=== PATIENT | female | born 1990 | race Two or more races ===

== ENCOUNTER 2019-01-13 18:07 | Inpatient (IN) | payer MEDICAID ==
[~2019-01-13] VITALS: Ht 162.6 cm; Wt 64.9 kg
[2019-01-13 18:57] LABS: BASOPHILS % (AUTO) 0.5 % (0.0-2.0); EOSINOPHILS % (AUTO) 3.7 % (0.0-6.0); HEMATOCRIT 36 % (33-45); HEMOGLOBIN 12.5 g/dL (11.5-14.8); LYMPHOCYTES # (AUTO) 1.5 /CMM (0.8-4.8); LYMPHOCYTES % (AUTO) 19.7 % (20.0-44.0); MEAN CORPUSCULAR HGB CONC 35 g/dl (31.0-36.0); MEAN CORPUSCULAR VOLUME 94 fL (82-100); MONOCYTES # (AUTO) 0.7 /CMM (0.1-1.30); MONOCYTES % (AUTO) 10.1 % (2.0-12.0); NEUTROPHILS # (AUTO) 4.9 /CMM (1.8-8.9); PLATELET COUNT (AUTO) 501 /CMM (150-450); RED BLOOD CELL COUNT(AUTO) 3.82 MIL/uL (4.0-5.2); WHITE BLOOD COUNT (AUTO) 7.4 K/uL (4.3-11.0)
[2019-01-13 19:03] LABS: CALCIUM, SERUM 9.2 mg/dL (8.5-10.1); CREATININE 0.6 mg/dL (0.6-1.3); POTASSIUM 4.6 mmol/L (3.5-5.1)
--- NOTE | 2019-01-13 19:05 | NUR ---
PT BIB RA WITH A C/O ABNORMAL LABS. PT CAME FROM HOME. PT'S SISTER IS AT THE BEDSIDE. PT IS NON VERBAL, HAS HX OF MULT ANEURYSMS. PT HAS MANAGER CAR SHUNT IN PLACE, TRACH TO ROOM AIR WITH CLOSED SUCTIONING, AND A GTUBE. PT HAS LUE CONTRACTURE, BLE CONTRACTURES. BLE ARE FLOATING ON A PILLOW WITH A PILLOW IN BETWEEN HER KNEES. PT IS ON THE MONITOR AND CONTINUOUS PULSE OX. SUCTIONING DONE BY RT.
--- NOTE | 2019-01-13 19:07 | NUR ---
RT CALLED FOR CLOSED SUCTIONING
--- NOTE | 2019-01-13 19:10 | NUR ---
CXR IN PROGRESS AT THE BEDSIDE.
--- NOTE | 2019-01-13 19:19 | NUR ---
Note undone in EDM - 01/13/19 at 2013 by ADRIANA PT BIB RA WITH A C/O ABNORMAL LABS. PT CAME FROM HOME. PT'S SISTER IS AT THE BEDSIDE. PT IS NON VERBAL, HAS HX OF MULT ANEURYSMS. PT HAS MULTI CRAFT MAINTENANCE TECHNICIAN SHUNT IN PLACE, TRACH TO ROOM AIR WITH CLOSED SUCTIONING, AND A GTUBE. PT HAS LUE CONTRACTURE, BLE CONTRACTURES. BLE ARE FLOATING ON A PILLOW WITH A PILLOW IN BETWEEN HER KNEES. PT IS ON THE MONITOR AND CONTINUOUS PULSE OX. SUCTIONING DONE BY RT.
--- NOTE | 2019-01-13 19:38 | NUR ---
CLEAN CATCH DONE AT BEDSIDE. SAMPLE SENT TO LAB.
[2019-01-13 19:48] LABS: APPEARANCE,URINE Cloudy (CLEAR); BILIRUBIN,URINE Negative (NEGATIVE); BLOOD, URINE Negative Ery/uL (NEGATIVE); COLOR,URINE Yellow (YELLOW); KETONES,URINE Negative (NEGATIVE); LEUKOCYTE ESTERASE ,URINE Small (NEGATIVE); NITRITE, URINE Negative (NEGATIVE); PH,URINE 7.5 (5.0-8.0); PROTEIN,URINE Negative (NEGATIVE); UGLUCOSE Negative (NEGATIVE); UROBILINOGEN,URINE 0.2 EU/dL (0.2)
--- NOTE | 2019-01-13 19:58 | NUR ---
CALLED [facility]. PER EUGENIA THEY ARE FULL TO CAPACITY AND HAVE NO AVAILABLE BEDS.
--- NOTE | 2019-01-13 20:03 | NUR ---
PT LEFT FOR CT VIA RNEY
[2019-01-13 20:05] LABS: BACTERIA,URINE Many /HPF (None Seen); RBC,URINE 0-2 /HPF (0-2); SQUAMOUS EPITHELIAL CELL,UR Few /HPF (None Seen); URINE AMORPHOUS PHOSPHATES Many /HPF (None Seen)
--- NOTE | 2019-01-13 20:06 | NUR ---
REPORT GIVEN TO MINDY LIZ FOR TO.
--- NOTE | 2019-01-13 20:36 | NUR ---
REPORT GIVEN TO NIEVES LIZ.
[2019-01-13] MEDS ORDERED: HYDROCODONE/APAP 5/325MG 1 EACH TABLET PO PRN (22:00)
[2019-01-13] MEDS ORDERED: ZOLPIDEM TARTRATE 5 MG TABLET PO PRN (22:00)
[2019-01-13] MEDS ORDERED: ONDANSETRON HCL/PF 4 MG/2 ML VIAL IVP PRN (22:00)
[2019-01-13] MEDS ORDERED: ACETAMINOPHEN 325 MG TABLET PO PRN (22:00)
[2019-01-13] MEDS ORDERED: Z GUARD REMEDY 2 OZ OINT TP PRN (22:00)
[2019-01-13] MEDS ORDERED: MAGNESIUM HYDROXIDE 30 ML UDC PO PRN (22:00)
[2019-01-13 22:15] VITALS: BP 127/79
--- NOTE | 2019-01-13 22:15 | NUR ---
CROSSING SUPERVISOR ADMITTING OPENING NOTES RECEIVED PATIENT FROM ER VIA RNEY, SAFELY TRANSFERRED TO BED, TRACH IN PLACE ON RA 98%,RESPIRATIONS EVEN AND UNLABORED WITH EQUAL RISE AND FALL OF CHEST, REMAINS FREE OF PAIN AT THIS TIME, NO FACIAL GRIMACING PRESENT, PLACED ON JIG BUILDER [address] REGULAR RHYTHM, SUCTIONING PROVIDED, TOLERATED WELL, BODY ASSESSMENT DONE NOTED WITH UPPER BACK RASH, PICTURES TAKEN , SKIN REMAINS INTACT, HEELS OFFLOADED, GTUBE IN PLACE, NO RESIDUALS PRESENT, INTACT AND PATENT, HEAD OF BED ELEVATED FOR ASPIRATION PRECAUTIONS, IV SITE TO RIGHT WRIST INTACT AND PATENT, NO REDNESS , NO INFILTRATION , BELONGINGS LIST DONE, MED RECON IN PLACE, SAFETY PRECAUTIONS IN PLACE, ORIENTED TO STAFF AND CALL LIGHT, ALL NEEDS ATTENDED AT THIS TIME, WILL CONTINE FREQUENT NEURO CHECKS , WILL FOLLOW MD ORDERS. REYNOLD SISTER [phone] MARIA LUZ SISTER [phone] FRACISCO BROTHER [phone]
[2019-01-13 22:30] VITALS: BP 127/79
[2019-01-13] MEDS ORDERED: PROP10TA10 GT (22:57)
[2019-01-13] MEDS ORDERED: HEPA500039 SQ (22:57)
[2019-01-13] MEDS ORDERED: DESMOPRESSIN ACETATE GT (22:57)
[2019-01-13] MEDS ORDERED: LEVE500T9 GT (22:57)
[2019-01-13] MEDS: LEVETIRACETAM SOL (5 ML) 100 MG/ML UDC PO SCH (23:53)
[2019-01-13] MEDS: PROPRANOLOL HCL 10 MG TABLET GT SCH (23:54)
[2019-01-13] MEDS: HEPARIN SODIUM, PORCINE 5000 UNITS/1 ML VIAL SQ SCH (23:55)
[2019-01-14] VITALS (8 sets, daily range): BP systolic 79–114; BP diastolic 49–72
[2019-01-14] MEDS ORDERED: JEVITY 1.2 CAL 1,000 ML BOTTLE GT SCH (02:30)
--- NOTE | 2019-01-14 06:44 | NUR ---
CONTAINER FILLER CLOSING NOTES PATIENT IN BED,AWAKE ALERT AND ORIENTED X1-2 ABLE TO COMMUNICATE WITH GESTURES AND HEAD NODD, TRACH IN PLACE ON RA 98%,RESPIRATIONS EVEN AND UNLABORED WITH EQUAL RISE AND FALL OF CHEST, SUCTION PROVIDED AND TOLERATED WELL, REMAINS FREE OF PAIN AT THIS TIME, NO FACIAL GRIMACING PRESENT, PLACED ON BEAN SPROUT LABORER [address] REGULAR RHYTHM,TOLERATED WELL, BODY REASSESSMENT DONE NOTED WITH UPPER BACK RASH, SACRAL AND HEELS REMAIN INTACT AND FREE OF REDNESS, GTUBE IN PLACE, NO RESIDUALS PRESENT FEEDING CURRENTLY RUNNING AT 20 ML/HR GOAL 67ML/HR,GTUBE INTACT AND PATENT, TRACH AND GTUBE DRESSING CLEANSED AND CHANGED REMAINS CLEAN AND DRY AND INTACT, HEAD OF BED ELEVATED FOR ASPIRATION PRECAUTIONS, IV SITE TO RIGHT WRIST INTACT AND PATENT, NO REDNESS , NO INFILTRATION , SAFETY PRECAUTIONS IN PLACE,CALL LIGHT KEPT WITHIN REACH, ALL NEEDS ATTENDED AT THIS TIME, PERINEAL CARE PROVIDED, REPOSITIONING PROVIDED, HEELS OFFLOADED WILL CONTINUE TO MONITOR AND ENDORSE TO NEXT SHIFT, NO CHANGES IN NEURO OR LOC THROUGHOUT SHIFT SINCE ADMISSION. CONTACTS REYNOLD SISTER [phone] MARIA LUZ SISTER [phone] FRACISCO BROTHER [phone]
[2019-01-14] MEDS ORDERED: JEVITY 1.2 CAL 1,000 ML BOTTLE GT PRN ×2 (07:03→16:00)
--- NOTE | 2019-01-14 07:10 | NUR ---
MS RN NOTES PATIENT IN BED EYES CLOSED, EASY TO AROUSE. HOB ELEVATED. NO ACUTE DISTRESS NOTED. BREATHING UNLABORED. IV ACCESS PATENT AND INTACT, NO REDNESS OR SWELLING NOTED. SAFETY MEASURES IN PLACE. CALL LIGHT WITHIN REACH. WILL CONTINUE TO MONITOR ACCORDINGLY.
[2019-01-14 07:19] LABS: CALCIUM, SERUM 9.8 mg/dL (8.5-10.1); CREATININE 0.8 mg/dL (0.6-1.3); MAGNESIUM 2.1 mg/dL (1.8-2.4); PHOSPHORUS 4.6 mg/dL (2.5-4.9); POTASSIUM 4.3 mmol/L (3.5-5.1)
[2019-01-14 07:26] LABS: BASOPHILS % (AUTO) 0.2 % (0.0-2.0); EOSINOPHILS % (AUTO) 2.9 % (0.0-6.0); HEMATOCRIT 35 % (33-45); HEMOGLOBIN 12.3 g/dL (11.5-14.8); LYMPHOCYTES # (AUTO) 1.3 /CMM (0.8-4.8); LYMPHOCYTES % (AUTO) 17.2 % (20.0-44.0); MEAN CORPUSCULAR HGB CONC 35 g/dl (31.0-36.0); MEAN CORPUSCULAR VOLUME 94 fL (82-100); MONOCYTES # (AUTO) 1.1 /CMM (0.1-1.30); MONOCYTES % (AUTO) 14.3 % (2.0-12.0); NEUTROPHILS % (AUTO) 65.4 % (43.0-81.0); PLATELET COUNT (AUTO) 522 /CMM (150-450); RED BLOOD CELL COUNT(AUTO) 3.69 MIL/uL (4.0-5.2); WHITE BLOOD COUNT (AUTO) 7.7 K/uL (4.3-11.0)
[2019-01-14] MEDS: LEVETIRACETAM SOL (5 ML) 100 MG/ML UDC PO SCH ×2 (08:37→21:19)
[2019-01-14] MEDS: HEPARIN SODIUM, PORCINE 5000 UNITS/1 ML VIAL SQ SCH ×2 (08:42→21:21)
[2019-01-14] MEDS: PROPRANOLOL HCL 10 MG TABLET GT SCH ×2 (08:42→17:40)
--- NOTE | 2019-01-14 08:42 | NUR ---
MS RN NOTES SEEN AND EVALUATED BY DR WARE WITH NEW ORDERS MADE, NOTED AND CARRIED OUT.
[2019-01-14] MEDS ORDERED: IV NS 0.9% 1,000 ML IV PRN (09:30)
[2019-01-14 09:54] LABS: ALBUMIN 3.5 g/dL (3.4-5.0); BILIRUBIN,DIRECT 0.1 mg/dL (0.0-0.2); BILIRUBIN,TOTAL 0.3 mg/dL (0.2-1.0); TOTAL PROTEIN, SERUM 8.1 g/dL (6.4-8.2)
--- NOTE | 2019-01-14 11:13 | NUR ---
WOUND CARE CONSULT: PT PRESENTS WITH INCONTINENCE AND SOME CONTRACTURES OF LOWER EXTREMITIES, BROWNISH DOT DISCOLORATION TO BACK, PRESENT ON ADMISSION. RECOMMENDATIONS MADE FOR SKIN PROTECTION AND DISCUSSED WITH NURSING STAFF. WILL SEE PRJason HESS IN AGREEMENT WITH PLAN OF CARE. ISOFLEX LOW AIRLOSS BED TO BE PLACED.
--- NOTE | 2019-01-14 12:42 | NUR ---
MS RN NOTES CLARIFIED ORDERS WITH DR WARE REGARDING NA LEVEL CHECK [id number], WITH ORDERS FOR NA LEVEL Q8H, NOTED AND CARRIED OUT.
--- NOTE | 2019-01-14 12:56 | NUR ---
MS RN NOTES SEEN AND EVALUATED BY ABRAHAM DAMON WITH ORDERS MAY DISCONTINUE CURRENT INFUSING IVF NS ONCE COMPLETED.
[2019-01-14] MEDS: DESMOPRESSIN ACETATE 0.1 MG TABLET PO SCH ×2 (13:49→17:39)
--- NOTE | 2019-01-14 15:41 | NUR ---
MS RN NOTES RECEIVED DIETARY RECOMMENDATION TO DECREASE TUBE FEEDING GOAL RATE FROM 67ML/HR TO 50ML/HR ,RELAYED TO DR WARE AGREED AND MADE ORDER, NOTED AND CARRIED OUT.
--- NOTE | 2019-01-14 19:00 | NUR ---
MS RN NOTES PATIENT IN BED EYES CLOSED, EASY TO AROUSE. HOB ELEVATED. NO ACUTE DISTRESS NOTED. BREATHING UNLABORED. IV ACCESS PATENT AND INTACT, NO REDNESS OR SWELLING NOTED. DUE MEDICATIONS GIVEN. NO ASE NOTED. NEEDS ATTENDED AND ANTICIPATED.KEPT CLEAN DRY AND COMFORTABLE. REPOSITIONED PER PROTOCOL. SAFETY MEASURES IN PLACE. CALL LIGHT WITHIN REACH. ENDORSED TO NIGHT NURSE FOR CONTINUITY OF CARE.
--- NOTE | 2019-01-14 19:10 | NUR ---
RN MS OPENING NOTES RECEIVED PATIENT IN BED,AWAKE ALERT AND ORIENTED X1-2 ABLE TO COMMUNICATE WITH GESTURES AND HEAD NODD, TRACH IN PLACE ON RA 99%,RESPIRATIONS EVEN AND UNLABORED WITH EQUAL RISE AND FALL OF CHEST, SUCTION PROVIDED AND TOLERATED WELL, REMAINS FREE OF PAIN AT THIS TIME, NO FACIAL GRIMACING PRESENT, PATIENT REPOSITIONED SACRAL AND HEELS REMAIN INTACT AND FREE OF REDNESS,OFFLOADED, GTUBE IN PLACE, NO RESIDUALS PRESENT FEEDING CURRENTLY RUNNING AT 50 ML/HR GOAL ORDERED GTUBE INTACT AND PATENT, HEAD OF BED ELEVATED FOR ASPIRATION PRECAUTIONS, IV SITE TO RIGHT FOREARM #22 INTACT AND PATENT, NO REDNESS , NO INFILTRATION , SAFETY PRECAUTIONS IN PLACE,CALL LIGHT KEPT WITHIN REACH, ALL NEEDS ATTENDED AT THIS TIME, PERINEAL CARE PROVIDED, REPOSITIONING PROVIDED, HEELS OFFLOADED WILL CONTINUE TO MONITOR, NO CHANGES IN NEURO OR LOC AT THIS TIME WILL CONTINUE TO MONITOR.
--- NOTE | 2019-01-14 22:50 | NUR ---
rn ms notes iv started to right upper arm to infuse fluids #24. iv site to right fa intact and patent, however patient frequently bend arms restricting iv to properly flow as ordered.
--- NOTE | 2019-01-15 06:30 | NUR ---
RN MS CLOSING NOTES PATIENT IN BED,AWAKE ALERT AND ORIENTED X1-2 ABLE TO COMMUNICATE WITH GESTURES AND HEAD NODD, TRACH IN PLACE, ON COOL AEROSL 5L 02 FIO2 28% ,RESPIRATIONS EVEN AND UNLABORED WITH EQUAL RISE AND FALL OF CHEST, SUCTION PROVIDED AND TOLERATED WELL, REMAINS FREE OF PAIN AT THIS TIME, NO FACIAL GRIMACING PRESENT, PATIENT REPOSITIONED SACRAL AND HEELS REMAIN INTACT AND FREE OF REDNESS,OFFLOADED, GTUBE IN PLACE, NO RESIDUALS PRESENT FEEDING CURRENTLY RUNNING AT 50 ML/HR ORDERED GTUBE INTACT AND PATENT, DRESSING CHANGE PROVIDED TO GTUBE AND TRACH AND PROPERLY SECURED, HEAD OF BED ELEVATED FOR ASPIRATION PRECAUTIONS, IV SITE TO RIGHT FOREARM #22 AND RIGHT UPPER ARM #24 INTACT AND PATENT, NO REDNESS , NO INFILTRATION ,IVF D/CD ORDERED SAFETY PRECAUTIONS IN PLACE,CALL LIGHT KEPT WITHIN REACH, ALL NEEDS ATTENDED AT THIS TIME, PERINEAL CARE PROVIDED, REPOSITIONING PROVIDED, HEELS OFFLOADED WILL CONTINUE TO MONITOR, NO CHANGES IN NEURO OR LOC AT THIS TIME WILL CONTINUE TO MONITOR AND ENDORSE TO NEXT SHIFT.
[2019-01-15 06:33] LABS: BASOPHILS % (AUTO) 0.4 % (0.0-2.0); EOSINOPHILS % (AUTO) 4.1 % (0.0-6.0); HEMATOCRIT 36 % (33-45); HEMOGLOBIN 12.6 g/dL (11.5-14.8); LYMPHOCYTES # (AUTO) 1.7 /CMM (0.8-4.8); LYMPHOCYTES % (AUTO) 24.8 % (20.0-44.0); MEAN CORPUSCULAR HGB CONC 35 g/dl (31.0-36.0); MEAN CORPUSCULAR VOLUME 95 fL (82-100); MONOCYTES # (AUTO) 1.2 /CMM (0.1-1.30); MONOCYTES % (AUTO) 18.1 % (2.0-12.0); NEUTROPHILS # (AUTO) 3.5 /CMM (1.8-8.9); NEUTROPHILS % (AUTO) 52.6 % (43.0-81.0); PLATELET COUNT (AUTO) 468 /CMM (150-450); RED BLOOD CELL COUNT(AUTO) 3.82 MIL/uL (4.0-5.2); WHITE BLOOD COUNT (AUTO) 6.7 K/uL (4.3-11.0)
[2019-01-15 06:38] LABS: URINE SODIUM, RANDOM 7 mmol/l (40-220)
[2019-01-15 06:41] LABS: ALBUMIN 3.3 g/dL (3.4-5.0); BILIRUBIN,TOTAL 0.2 mg/dL (0.2-1.0); CALCIUM, SERUM 9.6 mg/dL (8.5-10.1); CREATININE 0.7 mg/dL (0.6-1.3); MAGNESIUM 2.3 mg/dL (1.8-2.4); PHOSPHORUS 4.2 mg/dL (2.5-4.9); POTASSIUM 4.6 mmol/L (3.5-5.1); TOTAL PROTEIN, SERUM 7.7 g/dL (6.4-8.2)
[2019-01-15 06:51] LABS: OSMOLALITY,URINE 217 mOS/kg (340-1090)
--- NOTE | 2019-01-15 07:45 | NUR ---
MS RN NOTES PATIENT RECEIVED RESTING INSIDE ROOM. SLEEPING, EASILY AROUSABLE THROUGH VERBAL AND TACTILE STIMULI. BREATHING EVEN AND UNLABORED. CONTINUE WITH TRACH/COOL AEROSOL. NO ACUTE DISTRESS NOTED. PATIENT ABLE TO RESPOND WITH GESTURES. DENIES ANY PAIN OR DISCOMFORT AT THIS TIME. NO FACIAL GRIMACE NOTED. ONGOING GTF AND TOLERATING WELL. MAINTAINED ASPIRATION PRECAUTIONS. WILL CONTINUE TO MONITOR. BED LOCKED AND IN LOW POSITION. BILATERAL UPPER SIDE RAILS UP AND LOCKED. CALL LIGHT WITHIN EASY REACH
[2019-01-15 08:00] VITALS: BP 123/79
[2019-01-15] MEDS: LEVETIRACETAM SOL (5 ML) 100 MG/ML UDC PO SCH (08:36)
[2019-01-15 08:39] VITALS: BP 108/81
[2019-01-15] MEDS: HEPARIN SODIUM, PORCINE 5000 UNITS/1 ML VIAL SQ SCH (08:39)
[2019-01-15] MEDS: DESMOPRESSIN ACETATE 0.1 MG TABLET PO SCH ×3 (08:39→16:29)
[2019-01-15] MEDS: PROPRANOLOL HCL 10 MG TABLET GT SCH ×2 (08:39→16:29)
[2019-01-15] MEDS ORDERED: DESM0.1T PO (12:14)
--- NOTE | 2019-01-15 17:52 | NUR ---
MS RN NOTES PATIENT FOR DISCHARGE HOME. DISCHARGE INSTRUCTIONS AND EDUCATION GIVEN AND PROVIDED TO BROTHER ANASTASIA AND VERBALIZED UNDERSTANDING. TRANSPORTATION PRESENT AT UNIT AT 1700. ALL BELONGINGS COMPLETE, NO REPORT OF MISSING INVENTORY. IV REMOVED WITH MINIMAL BLEEDING NOTED. PATIENT LEFT UNIT AT 1730 IN STABLE CONDITION. BREATHING EVEN AND UNLABORED. NO ACUTE DISTRESS. NO FACIAL GRIMACE OR INDICATION OF PAIN NOTED. NO NEW SKIN BREAKDOWN NOTED. LEFT VIA GURNEY WITH BROTHER AND spot worker. MD MADE AWARE OF DISCHARGE
== END 2019-01-15 17:15 | disposition home health service (06) | DRG 426 ==
LOC: ER 18:07 → TELE 21:25 → MED 01-14 08:14
PROVIDERS: ADMIT Nurse Practitioner Acute Care; ATTEND Student in an Organized Health Care Education/Training Program
DX: E87.1 Hypo-osmolality and hyponatremia (principal); D68.59 Other primary thrombophilia; R53.2 Functional quadriplegia; Z93.0 Tracheostomy status; R13.10 Dysphagia, unspecified; Z93.1 Gastrostomy status; N39.0 Urinary tract infection, site not specified; Z86.73 Personal history of transient ischemic attack (TIA), and cerebral infarction without residual deficits; Z86.59 Personal history of other mental and behavioral disorders; Z98.2 Presence of cerebrospinal fluid drainage device; Z98.890 Other specified postprocedural states; I10 Essential (primary) hypertension; Z79.01 Long term (current) use of anticoagulants; T38.895A Adverse effect of other hormones and synthetic substitutes, initial encounter; Y92.009 Unspecified place in unspecified non-institutional (private) residence as the place of occurrence of the external cause; Z87.09 Personal history of other diseases of the respiratory system
CPT/HCPCS: 31720; 36415; 70450-TC; 71045-TC; 80048-TC; 80053-TC; 80061-TC; 80076-TC; 81000-TC; 83735-TC; 83935-TC; 84100-TC; 84295-TC; 84300-TC; 84703-TC; 85025-TC; 87081-TC; 87086-TC; 87186-TC; 94760-TC; G0378; J1644; J1953; J7030

== ENCOUNTER 2019-07-19 17:13 | Emergency (ER) | payer MEDICAID ==
[~2019-07-19] VITALS: Ht 170.2 cm; Wt 71.7 kg
[~2019-07-19 17:13] MED LIST: DESM0.1T PO; HEPA500039 SQ; LEVE500T9 GT; PROP10TA10 GT
--- NOTE | 2019-07-19 17:20 | NUR ---
[id number], FROM HOME, SENT BY PMD FOR SHUNT CHECK ON THE HEAD, PT IS AAOX1, NOT IN RESPIRATORY DISTRESS, V/S STABLE, KEPT RESTED AND COMFORTABLE, WILL CONTINUE TO MONITOR.
--- NOTE | 2019-07-19 17:40 | NUR ---
PAGED DR. FREED (NEURO SURGEON) [phone] [facility] AND LEFT A MESSAGE
[2019-07-19] MEDS ORDERED: HEPA1DIS12 IM (18:00)
[2019-07-19] MEDS ORDERED: PROP10TA10 PO (18:00)
[2019-07-19] MEDS ORDERED: HYDR-500 PO (18:00)
[2019-07-19] MEDS ORDERED: LEVE1000 PO (18:00)
[2019-07-19] MEDS ORDERED: ASPI-605 PO (18:00)
[2019-07-19] MEDS ORDERED: MULT-447 PO (18:00)
[2019-07-19] MEDS ORDERED: CYCL5TAB PO (18:00)
[2019-07-19] MEDS ORDERED: ONDA4TAB11 PO (18:00)
[2019-07-19] MEDS ORDERED: SACC250C PO (18:00)
[2019-07-19] MEDS ORDERED: PSYL0.5245 PO (18:00)
[2019-07-19] MEDS ORDERED: ACET-73 PO (18:00)
[2019-07-19] MEDS ORDERED: VITA1TAB56 PO (18:00)
[2019-07-19] MEDS ORDERED: RANI150T8 PO (18:00)
[2019-07-19] MEDS ORDERED: DESM0.2T23 PO (18:01)
--- NOTE | 2019-07-19 18:32 | NUR ---
PT MAY CONTINUE OWN MEDS, KESHIA HUFFMAN AWARE.
--- NOTE | 2019-07-19 19:04 | NUR ---
CALLED [facility] SPOKE WITH WILFRED TO REQUEST TX. FAXED FACESHEET TO
--- NOTE | 2019-07-19 19:16 | NUR ---
SPOKED TO FAIZAN XIONG OF [facility], WILL CALL BACK FROM UPDATE.
--- NOTE | 2019-07-19 19:31 | NUR ---
REPORT GIVEN TO AGUSTO HATCH FOR TO. AWAITING CALL BACK FROM THE [facility].
--- NOTE | 2019-07-19 20:09 | NUR ---
CALLED [facility] FOR TRANSPORTATION. ETA [phone], TRIP NUMBER [id number]
--- NOTE | 2019-07-19 20:10 | NUR ---
PT WILL BE TRANSFERRED TO [facility] ER NUMBER FOR REPORT: [phone] CHAPARRITA HESS: DR. EDGE
--- NOTE | 2019-07-19 20:13 | NUR ---
FOR ANY CHANGE IN PT STATUS PRIOR TO TRANSFER CALL WILFRED AT
--- NOTE | 2019-07-19 21:06 | NUR ---
REPORT GIVEN TO DONALD AT [facility] FOR TO.
[2019-07-19 21:13] VITALS: BP 123/84
== END 2019-07-19 23:03 | disposition short-term general hospital (02) ==
LOC: ER 17:20
DX: T85.01XA Breakdown (mechanical) of ventricular intracranial (communicating) shunt, initial encounter (principal); I10 Essential (primary) hypertension; Z86.73 Personal history of transient ischemic attack (TIA), and cerebral infarction without residual deficits; Z98.890 Other specified postprocedural states; Z79.899 Other long term (current) drug therapy; Z79.82 Long term (current) use of aspirin
CPT/HCPCS: 99285; A6403

== ENCOUNTER 2019-09-03 10:30 | Emergency (ER) | payer MEDICAID ==
[~2019-09-03] VITALS: Ht 162.6 cm; Wt 59.0 kg
[~2019-09-03 10:30] MED LIST changes: +ACET-73 PO; +ASPI-605 PO; +CYCL5TAB PO; -DESM0.1T PO; +DESM0.2T23 PO; +HEPA1DIS12 IM; -HEPA500039 SQ; +HYDR-500 PO; +LEVE1000 PO; -LEVE500T9 GT; +MULT-447 PO; +ONDA4TAB11 PO; -PROP10TA10 GT; +PROP10TA10 PO; +PSYL0.5245 PO; +RANI150T8 PO; +SACC250C PO; +VITA1TAB56 PO
--- NOTE | 2019-09-03 10:45 | NUR ---
PATIENT BIB SISTER C/O DISLODGED TRACHEOSTOMY TUBE. PT AAOX4, VSS, BREATHING EVEN AND UNLABORED W/ NO ACUTE DISTRESS NOTED. MINIMAL BLEEDING ON THE STOMA. PT CONNECTED TO THE MONITOR. RT AT BEDSIDE.
--- NOTE | 2019-09-03 11:11 | NUR ---
CALLED [facility], SPOKE WITH GILBERTO FOR TRANSFORTATION ([phone]). TRIP# [id number]. ETA 1215. FAMILY AT BEDSIDE MADE AWARE. PRIMARY RN AWARE.
--- NOTE | 2019-09-03 12:00 | NUR ---
PER [facility] PT NOT ASSIGNED A TRANSPORT COMPANY YET, NO ETA AVAILABLE.
--- NOTE | 2019-09-03 13:07 | NUR ---
SANDOVAL MCGRAW TO [facility] ETA [id number] TRIP#[id number]
--- NOTE | 2019-09-03 15:55 | NUR ---
Patient picked up by [facility] in stable condition. Patient will be brought home. Sister at bedside. Written and verbal after care instructions given. Sister verbalizes understanding of instruction.
[2019-09-03 15:57] VITALS: BP 111/85
== END 2019-09-03 15:57 | disposition home or self-care (01) ==
LOC: ER 10:35
DX: J95.09 Other tracheostomy complication (principal); I10 Essential (primary) hypertension; Z86.73 Personal history of transient ischemic attack (TIA), and cerebral infarction without residual deficits; Z79.82 Long term (current) use of aspirin; Z79.899 Other long term (current) drug therapy; Z98.2 Presence of cerebrospinal fluid drainage device
CPT/HCPCS: 99284; A7526

== ENCOUNTER 2020-01-13 08:39 | Emergency (ER) | payer MEDICAID ==
[~2020-01-13] VITALS: Ht 162.6 cm; Wt 70.8 kg
--- NOTE | 2020-01-13 08:42 | NUR ---
PT BIBRA FROM HOME C/O POSSIBLE SEIZURE EPISODE WITNESSED FOR 2-3MINS PER BROTHER, PT IS AAOX3, BED BOUND, NOT IN RESPIRATORY DISTRESS, HOOKED TO LIGHT INDUSTRIAL SUPERVISOR, KEPT RESTED AND COMFORTABLE, WILL CONTINUE TO MONITOR.
--- NOTE | 2020-01-13 08:50 | NUR ---
SEEN AND EXAMINED BY
[2020-01-13 09:06] LABS: BASOPHILS # (AUTO) 0.1 /CMM (0.0-0.2); BASOPHILS % (AUTO) 0.9 % (0.0-2.0); EOSINOPHILS % (AUTO) 4.1 % (0.0-6.0); HEMATOCRIT 42 % (33-45); HEMOGLOBIN 14.7 g/dL (11.5-14.8); LYMPHOCYTES # (AUTO) 1.6 /CMM (0.8-4.8); LYMPHOCYTES % (AUTO) 20.3 % (20.0-44.0); MEAN CORPUSCULAR HGB CONC 35 g/dl (31.0-36.0); MEAN CORPUSCULAR VOLUME 91 fL (82-100); MONOCYTES # (AUTO) 0.7 /CMM (0.1-1.30); MONOCYTES % (AUTO) 8.6 % (2.0-12.0); NEUTROPHILS # (AUTO) 5.4 /CMM (1.8-8.9); NEUTROPHILS % (AUTO) 66.1 % (43.0-81.0); PLATELET COUNT (AUTO) 386 /CMM (150-450); RED BLOOD CELL COUNT(AUTO) 4.67 MIL/uL (4.0-5.2); WHITE BLOOD COUNT (AUTO) 8.1 K/uL (4.3-11.0)
[2020-01-13 09:15] LABS: CALCIUM, SERUM 9.5 mg/dL (8.5-10.1); CREATININE 0.6 mg/dL (0.6-1.3); POTASSIUM 3.8 mmol/L (3.5-5.1)
[2020-01-13 09:21] LABS: ALBUMIN 3.9 g/dL (3.4-5.0); BILIRUBIN,DIRECT 0.1 mg/dL (0.0-0.2); BILIRUBIN,TOTAL 0.4 mg/dL (0.2-1.0); TOTAL PROTEIN, SERUM 8.2 g/dL (6.4-8.2)
--- NOTE | 2020-01-13 11:48 | NUR ---
CALLED TRANSP[facility]ATION [facility] FOR [facility] TR[facility]. ETA [phone]. [facility]FFERANCE NUMBER [id number].
--- NOTE | 2020-01-13 12:00 | NUR ---
PT RESTING COMFORTABLY IN BED. NO COMPLAINTS AT THIS TIME. READY FOR DISCHARGE. WILL ARRANGE FOR TRANSPORTATION.
--- NOTE | 2020-01-13 13:32 | NUR ---
UPDATED ETA [phone]
--- NOTE | 2020-01-13 14:50 | NUR ---
CALLED [facility] ABOUT STATUS OF AMBULANCE TRANSPORT. AMBULANCE WILL BE DELAYED ANOTHER 45-1 HOUR. DID NOT CALL TO UPDATE ABOUT DELAY OF AMBULANCE.
--- NOTE | 2020-01-13 16:04 | NUR ---
REPORT GIVEN TO AMBULANCE UNIT #[phone] FOR TRANSPORT
--- NOTE | 2020-01-13 16:07 | NUR ---
Patient discharged to home in stable condition. Written and verbal after care instructions given. Patient verbalizes understanding of instruction.IV removed. Catheter intact and site benign. Pressure and 4x4 applied to site. No bleeding noted.
[2020-01-13 16:24] VITALS: BP 111/72
== END 2020-01-13 16:25 | disposition home or self-care (01) ==
LOC: ER 08:43
DX: R40.4 Transient alteration of awareness (principal); I10 Essential (primary) hypertension; Z86.73 Personal history of transient ischemic attack (TIA), and cerebral infarction without residual deficits; Z98.890 Other specified postprocedural states; Z79.899 Other long term (current) drug therapy; Z79.82 Long term (current) use of aspirin; Z79.01 Long term (current) use of anticoagulants
CPT/HCPCS: 36415; 70450-TC; 80048-TC; 80076-TC; 85025-TC; 85730-TC

== ENCOUNTER 2020-05-03 02:50 | Emergency (ER) | payer MEDICAID ==
--- NOTE | 2020-05-03 02:50 | NUR ---
SEE DOWNTIME TRIAGE NOTE.
--- NOTE | 2020-05-03 03:02 | NUR ---
PT BIBRA FROM HOME C/O GENERALIZED WEAKNESS, HEADACHE, ELEVATED BP S/P REBAR FABRICATOR SHUNT ADJUSTMENT. @ [facility]. PT NON VERBAL BUT FOLLOWS COMMANDS AND RESPONSIVE TO MECHANICAL STIMULUS. PT CONNECTED TO THE OVAL OR CIRCULAR GLASS CUTTER AND POX
--- NOTE | 2020-05-03 03:10 | NUR ---
BLOOD COLLECTED AND SENT TO LAB
--- NOTE | 2020-05-03 03:15 | NUR ---
PT TAKEN TO CT
--- NOTE | 2020-05-03 03:26 | NUR ---
PT BACK FROM CT
--- NOTE | 2020-05-03 03:30 | NUR ---
PT CLEANED. LINEN CHANGED.
--- NOTE | 2020-05-03 06:00 | NUR ---
CALLED [facility] FOR TRANSPORT. #[phone]
--- NOTE | 2020-05-03 07:00 | NUR ---
[facility] ETA 1030
--- NOTE | 2020-05-03 10:38 | NUR ---
Patient picked up by [facility] UN[facility] in stable condition. Written and verbal after care instructions given. Brother verbalizes understanding of instruction. Patient will be brought home.
[2020-05-03 11:30] VITALS: BP 132/97
[2020-05-03 12:40] LABS: POTASSIUM 4.2 mmol/L (3.5-5.1)
[2020-05-03 12:41] LABS: BILIRUBIN,TOTAL 0.3 mg/dL (0.2-1.0); CALCIUM, SERUM 9.5 mg/dL (8.5-10.1); CREATININE 0.5 mg/dL (0.6-1.3)
[2020-05-03 12:42] LABS: ALBUMIN 4.1 g/dL (3.4-5.0); TOTAL PROTEIN, SERUM 8.2 g/dL (6.4-8.2)
[2020-05-03 12:48] LABS: BASOPHILS # (AUTO) 0.1 /CMM (0.0-0.2); BASOPHILS % (AUTO) 0.9 % (0.0-2.0); EOSINOPHILS % (AUTO) 0.7 % (0.0-6.0); HEMATOCRIT 42 % (33-45); HEMOGLOBIN 14.7 g/dL (11.5-14.8); LYMPHOCYTES # (AUTO) 1.6 /CMM (0.8-4.8); LYMPHOCYTES % (AUTO) 16.8 % (20.0-44.0); MEAN CORPUSCULAR HGB CONC 35 g/dl (31.0-36.0); MEAN CORPUSCULAR VOLUME 93 fL (82-100); MONOCYTES # (AUTO) 0.7 /CMM (0.1-1.30); MONOCYTES % (AUTO) 7.3 % (2.0-12.0); NEUTROPHILS # (AUTO) 7.2 /CMM (1.8-8.9); NEUTROPHILS % (AUTO) 74.3 % (43.0-81.0); PLATELET COUNT (AUTO) 441 /CMM (150-450); RED BLOOD CELL COUNT(AUTO) 4.56 MIL/uL (4.0-5.2); WHITE BLOOD COUNT (AUTO) 9.7 K/uL (4.3-11.0)
== END 2020-05-03 10:41 | disposition home or self-care (01) ==
LOC: ER 02:50
DX: R53.1 Weakness (principal); R41.82 Altered mental status, unspecified; I10 Essential (primary) hypertension; Z86.73 Personal history of transient ischemic attack (TIA), and cerebral infarction without residual deficits; Z98.890 Other specified postprocedural states; Z79.82 Long term (current) use of aspirin; Z79.899 Other long term (current) drug therapy
CPT/HCPCS: 36415; 70450-TC; 80053-TC; 85025-TC; 85610-TC; 85730-TC

== ENCOUNTER 2022-01-23 14:53 | Inpatient (IN) | payer MEDICARE, OTHER ==
[~2022-01-23] VITALS: Ht 162.6 cm; Wt 71.7 kg
--- NOTE | 2022-01-23 15:00 | NUR ---
BIBRA83 HOME, WITNESSED SEIZURE LASTING 90SECS. +ORAL TRAUMA.BG 100 BAIT MAN. PATIENT PLACED ON BED AWAKE, NOT IN DISTRESS.
--- NOTE | 2022-01-23 16:15 | NUR ---
IV L WRIST G20. BLOODS DRAWN FOR INVESTIGATION SENT TO LAB.
[2022-01-23 16:21] LABS: BASOPHILS % (AUTO) 0.1 % (0.0-2.0); EOSINOPHILS % (AUTO) 0.4 % (0.0-6.0); HEMATOCRIT 33 % (33-45); HEMOGLOBIN 11.2 g/dL (11.5-14.8); LYMPHOCYTES # (AUTO) 0.8 K/uL (0.8-4.8); LYMPHOCYTES % (AUTO) 9.5 % (20.0-44.0); MEAN CORPUSCULAR HGB CONC 34 g/dl (31.0-36.0); MEAN CORPUSCULAR VOLUME 93 fL (82-100); MONOCYTES # (AUTO) 0.5 K/uL (0.1-1.30); MONOCYTES % (AUTO) 5.9 % (2.0-12.0); NEUTROPHILS % (AUTO) 84.1 % (43.0-81.0); PLATELET COUNT (AUTO) 356 K/uL (150-450); RED BLOOD CELL COUNT(AUTO) 3.58 MIL/uL (4.0-5.2); WHITE BLOOD COUNT (AUTO) 8.4 K/uL (4.3-11.0)
[2022-01-23] MEDS: LEVETIRACETAM (500MG) 1,000 MG in IV NS 0.9% 100 ML IV SCH (16:45)
[2022-01-23 17:11] LABS: CALCIUM, SERUM 9.2 mg/dL (8.5-10.1); CREATININE 0.4 mg/dL (0.6-1.3); POTASSIUM 4.6 mmol/L (3.5-5.1)
--- NOTE | 2022-01-23 17:25 | NUR ---
MOVE SHEET SUBMITTED AND CALLED FOR TELE BED.
--- NOTE | 2022-01-23 17:43 | NUR ---
covid swab sent.
[2022-01-23] MEDS ORDERED: IV NS 0.9% 1,000 ML BAG IV ONE (18:00)
--- NOTE | 2022-01-23 19:08 | NUR ---
paged it applications developer MD for [facility].
--- NOTE | 2022-01-23 19:14 | NUR ---
GUEVARA HESS TALKING TO ISMAEL HESS
--- NOTE | 2022-01-23 20:41 | NUR ---
REPORT GIVEN TO AGUSTO WILLIS
[2022-01-23 21:00] VITALS: BP 134/98
--- NOTE | 2022-01-23 21:00 | NUR ---
PATIENT ARRIVED FROM ER, AWAKE, NON VERBAL, BROTHER( POA) AT THE BEDSIDE. NO S/S OF DISTRESS NOTED. NOT IN PAIN. ON O2 AT 3L/ MIN NASAL CANNULA. HOB ELEVATED. WITH TRACHEOSTOMY INTACT, DRESSING IS CLEAN, DRY AND INTACT, NO SECRETIONS NOTED. WITH GT INTACT, NO SKIN IRRITATIONS NOTED. CALL LIGHT WITHIN REACH. BED ALARM ON. BED IN LOWEST AND LOCKED POSITION. HAD BM, BROWNISH COLOR, MODERATE AMOUNT, CLEANED PATIENT AND KEPT DRY. THE LEFT PART OF THE HEAD IS SUNKEN, PROTECTED WITH PILLOW. PRECAUTION WHEN TURNING THE PATIENT OBSERVED.
--- NOTE | 2022-01-23 21:03 | NUR ---
PATIENT TRANSFERRED UNDER ACLS
--- NOTE | 2022-01-23 22:08 | NUR ---
INFORMED DR LOPES RE: ADMISSION ORDERS AND 2 HOME MEDS THAT ARE NOT INCLUDED IN THE MED RECON- FLUCONAZOLE 200MG BID AND THE CLOTRIMAZOLE EAR DROPS. AND PATIENT HAS GT ON TUBE FEEDING AT HOME AND PATIENT HAS TRACHEOSTOMY.
--- NOTE | 2022-01-23 22:52 | NUR ---
NO ADMISSION ORDERS YET AT THIS TIME, FOLLOWED UP- SENT MESSAGES AGAIN, CHARGE NURSE CLARITA MORRIS.
[2022-01-23] MEDS ORDERED: FLUC100T8 GT (23:17)
[2022-01-23] MEDS ORDERED: ONDANSETRON HCL/PF 4 MG/2 ML VIAL IVP PRN (23:30)
[2022-01-23] MEDS ORDERED: MAG HYDROX/AL HYDROX/SIMETH 30 ML UDC PO PRN (23:30)
[2022-01-23] MEDS ORDERED: ZOLPIDEM TARTRATE 5 MG TABLET PO PRN (23:30)
[2022-01-23] MEDS ORDERED: ACETAMINOPHEN 325 MG TABLET PO PRN (23:30)
[2022-01-23] MEDS ORDERED: MAGNESIUM HYDROXIDE 30 ML UDC PO PRN (23:30)
[2022-01-23] MEDS: IV NS 0.9% 1,000 ML IV PRN (23:38)
[2022-01-23] MEDS: ENOXAPARIN SODIUM 40 MG/0.4 ML DISP.SYRIN SQ SCH (23:39)
--- NOTE | 2022-01-23 23:54 | NUR ---
DR LOPES CAME AND SEEN THE PATIENT.
--- NOTE | 2022-01-24 00:14 | NUR ---
INFORMED DR LOPES RE: SODIUM 118.
[2022-01-24] MEDS ORDERED: hydrOXYzine PAMOATE 25 MG CAPSULE PO PRN (01:30)
[2022-01-24] MEDS ORDERED: CYCLOBENZAPRINE 10 MG TABLET PO PRN (01:30)
[2022-01-24] MEDS ORDERED: LORAZEPAM INJ 2 MG/ML VIAL IV PRN (02:00)
[2022-01-24 04:01] LABS: BASOPHILS % (AUTO) 0.1 % (0.0-2.0); EOSINOPHILS % (AUTO) 0.5 % (0.0-6.0); HEMATOCRIT 27 % (33-45); HEMOGLOBIN 8.8 g/dL (11.5-14.8); LYMPHOCYTES % (AUTO) 14.9 % (20.0-44.0); MEAN CORPUSCULAR HGB CONC 33 g/dl (31.0-36.0); MEAN CORPUSCULAR VOLUME 98 fL (82-100); MONOCYTES # (AUTO) 0.4 K/uL (0.1-1.30); MONOCYTES % (AUTO) 6.1 % (2.0-12.0); NEUTROPHILS # (AUTO) 5.4 K/uL (1.8-8.9); NEUTROPHILS % (AUTO) 78.4 % (43.0-81.0); PLATELET COUNT (AUTO) 308 K/uL (150-450); RED BLOOD CELL COUNT(AUTO) 2.75 MIL/uL (4.0-5.2); WHITE BLOOD COUNT (AUTO) 6.8 K/uL (4.3-11.0)
[2022-01-24 04:15] VITALS: BP 133/93
[2022-01-24] MEDS ORDERED: LEVETIRACETAM (500MG) 500 MG/5 ML VIAL IV ONE (05:26)
[2022-01-24] MEDS: LEVETIRACETAM (500MG) 1,000 MG in IV NS 0.9% 100 ML IV SCH ×2 (05:56→16:19)
--- NOTE | 2022-01-24 06:00 | NUR ---
CLAIMS DIRECTOR OPENING NOTES: PATIENT IN BED, AWAKE, NON VERBAL, NO S/S OF DISTRESS NOTED. NOT IN PAIN. CALL LIGHT WITHIN REACH. BED ALARM ON. BED IN LOWEST AND LOCKED POSITION. HOB ELEVATED AT ALL TIMES. TURNED AND REPOSITIONED Q2 HOURS. HEELS OFFLOADED AT ALL TIMES. SEIZURE PRECAUTIONS, SIDERAILS PADDED. NO SEIZURE EPISODE NOTED. WITH TRACH INTACT CONNECTED TO COOL AEROSOL 28% ON 5L. GT INTACT.
--- NOTE | 2022-01-24 06:34 | NUR ---
INFORMED DR LOPES RE: TELE MONITOR READING OF SR WITH FIRST DEGREE AV BLOCK
[2022-01-24] MEDS: PANTOPRAZOLE 40 MG TABLET.DR PO SCH (07:30)
--- NOTE | 2022-01-24 07:56 | NUR ---
MS RN OPENING NOTES RECEIVED PATIENT IN BED AWAKE, NON-VERBAL. NOT IN APPARENT DISTRESS. WITH TRACHEOSTOMY ON COOL AEROSOL. HAS RIGHT HAND IV ACCESS #20G WITH NS RUNNING @ 75 ML/HR. SAFETY PRECAUTIONS IN PLACED. SIDE RAILS X4 PADDED. WILL CONTINUE PLAN OF CARE.
[2022-01-24 08:00] VITALS: BP 130/81
[2022-01-24 08:58] LABS: POTASSIUM 4.1 mmol/L (3.5-5.1)
[2022-01-24 09:00] LABS: CALCIUM, SERUM 8.3 mg/dL (8.5-10.1); CREATININE 0.3 mg/dL (0.6-1.3); MAGNESIUM 1.6 mg/dL (1.8-2.4); PHOSPHORUS 3.3 mg/dL (2.5-4.9); THYROID STIMULATING HORMONE 3.978 uIU/mL (0.358-3.74)
[2022-01-24] MEDS: VITAMIN B COMP W-C 1 TAB TABLET PO SCH (09:00)
[2022-01-24] MEDS: FAMOTIDINE (20 MG) 20 MG TABLET PO SCH ×2 (09:00→21:29)
[2022-01-24] MEDS: ACIDOPHILUS/BULGARICUS 1 EACH TAB.CHEW PO SCH ×2 (09:00→17:42)
[2022-01-24] MEDS: FLUCONAZOLE (100 MG) 100 MG TABLET PO SCH ×2 (09:00→17:42)
[2022-01-24] MEDS: MULTIVIT W/MINERALS 1 TAB TABLET PO SCH (09:00)
[2022-01-24] MEDS: ASPIRIN EC 81 MG TABLET.DR PO SCH (09:00)
[2022-01-24] MEDS: PROPRANOLOL HCL 10 MG TABLET PO SCH ×2 (09:00→16:57)
--- NOTE | 2022-01-24 10:00 | NUR ---
WOUND CARE CONSULT: PT PRESENTS WITH DRY LESION TO LEFT ARM (WITHOUT DRAINAGE OR ERYTHEMA) AND RT BUTTOCK RAISED PIMPLE-LIKE AREA WHICH IS RED IN COLOR, PRESENT ON ADMISSION. RECOMMENDATIONS MADE FOR WOUND CARE AND SKIN PROTECTION. DISCUSSED WITH NURSING STAFF. LEFT ARM LESION OPEN TO AIR. PT IS ON PAPO ISOFLEX LOW AIRLOSS BED. IN AGREEMENT WITH PLAN OF CARE. Addendum: 01/24/22 at 1002 by GWEN GAR WNDNU Amended: Links added.
--- NOTE | 2022-01-24 10:10 | NUR ---
IT SOFTWARE DEVELOPER NOTES SEEN BY WOUND TX NURSE WITH NEW ORDERS MADE AND CARRIED OUT.
--- NOTE | 2022-01-24 10:36 | NUR ---
GROUNDS MAINTENANCE MANAGER NOTES PER PT BROTHER FRACISCO, PT IS ON GT BOLUS FEEDING OF [employer] 1.0 FORMULA.
[2022-01-24 12:00] VITALS: BP 116/84
--- NOTE | 2022-01-24 12:44 | NUR ---
BUSINESS TRANSFORMATION CONSULTANT NOTES SEEN AND EXAMINED BY DR. EDWARDS, PLAN OF CARE DISCUSSED WITH SISTER MARIA LUZ AT BEDSIDE, PER MD DOWNS TO START GT FEEDING PER DIETITIAN RECOMMENDATION.
[2022-01-24 16:00] VITALS: BP 101/71
[2022-01-24] MEDS: IV NS 0.9% 1,000 ML IV PRN (16:33)
[2022-01-24] MEDS: CLOTRIMAZOLE 1% OT SCH (17:10)
[2022-01-24] MEDS: NEOMY SULF/BACITRAC ZN/POLY 15 GM TUBE TP SCH (17:10)
[2022-01-24] MEDS: CALCIUM POLYCARBOPHIL 625 MG TABLET PO SCH (17:46)
[2022-01-24] MEDS: [UNRECOGNIZED DRUG - MIXTURE] GT SCH ×2 (17:50→21:29)
--- NOTE | 2022-01-24 18:57 | NUR ---
FIBERGLASS DOWEL DRAWING OPERATOR CLOSING NOTES PATIENT IN BED REST, OPENS EYES, NON-VERBAL. ON TRACHEOSTOMY AEROSOL @ 5 LPM. NO SOB OR . VS WNL. NO BOWEL MOVEMENT DURING SHIFT. HAS RIGHT HAND IV ACCESS #20G WITH NS RUNNING @ 75 ML/HR PATENT AND INTACT. WOUND TX RENDERED. STARTED ON G-TUBE BOLUS FEEDING. ALL NEEDS ATTENDED. KEPT DRY AND COMFORTABLE. SEIZURE AND SAFETY PRECAUTIONS IN PLACED: BED LOW AND LOCKED, SIDE RAILS UP X4 PADDED, BED ALARM ON.
--- NOTE | 2022-01-24 19:15 | NUR ---
DIRECTOR FOUNDATION OPENING NOTES: RECEIVED PATIENT IN BED, AWAKE, NON VERBAL. NO S/S OF DISTRESS NOTED. NOT IN PAIN. CALL LIGHT WITHIN REACH. BED ALARM ON. BED IN LOWEST AND LOCKED POSITION. ON TELE MONITOR WITH SINUS 73. HOB ELEVATED. WITH TRACH CONNECTED TO COOL AEROSOL 28% 5L. WITH GT INTACT. HEELS OFFLOADED.
[2022-01-24] MEDS: Magnesium 1GM/D5W 100ML PREMIX 100 ML IV SCH ×2 (19:52→21:07)
[2022-01-24 20:00] VITALS: BP 109/79
[2022-01-24] MEDS: ENOXAPARIN SODIUM 40 MG/0.4 ML DISP.SYRIN SQ SCH (21:33)
--- NOTE | 2022-01-24 23:55 | NUR ---
INFORMED DR LOPES RE: SODIUM 112.
[2022-01-25] VITALS: BP 108/74
--- NOTE | 2022-01-25 00:36 | NUR ---
CALLED DR WEBSTER AND LEFT MESSAGES RE: [id number].
[2022-01-25 04:00] VITALS: BP 102/74
[2022-01-25] MEDS: LEVETIRACETAM (500MG) 1,000 MG in IV NS 0.9% 100 ML IV SCH (04:23)
[2022-01-25 05:56] LABS: CALCIUM, SERUM 7.9 mg/dL (8.5-10.1); CREATININE 0.3 mg/dL (0.6-1.3)
[2022-01-25 06:05] LABS: POTASSIUM 4.1 mmol/L (3.5-5.1)
[2022-01-25 06:21] LABS: BASOPHILS % (AUTO) 0.1 % (0.0-2.0); EOSINOPHILS % (AUTO) 0.4 % (0.0-6.0); HEMATOCRIT 31 % (33-45); HEMOGLOBIN 10.4 g/dL (11.5-14.8); LYMPHOCYTES # (AUTO) 0.8 K/uL (0.8-4.8); LYMPHOCYTES % (AUTO) 12.4 % (20.0-44.0); MEAN CORPUSCULAR HGB CONC 34 g/dl (31.0-36.0); MEAN CORPUSCULAR VOLUME 93 fL (82-100); MONOCYTES # (AUTO) 0.5 K/uL (0.1-1.30); MONOCYTES % (AUTO) 7.7 % (2.0-12.0); NEUTROPHILS # (AUTO) 5.1 K/uL (1.8-8.9); NEUTROPHILS % (AUTO) 79.4 % (43.0-81.0); PLATELET COUNT (AUTO) 305 K/uL (150-450); RED BLOOD CELL COUNT(AUTO) 3.35 MIL/uL (4.0-5.2); WHITE BLOOD COUNT (AUTO) 6.5 K/uL (4.3-11.0)
--- NOTE | 2022-01-25 06:27 | NUR ---
INFORMED DR LOPES RE: SODIUM= 118.
--- NOTE | 2022-01-25 06:30 | NUR ---
CORPORATE ACCOUNT EXECUTIVE CLOSING NOTES: PATIENT IN BED, ASLEEP, NO S/S OF DISTRESS NOTED. NOT IN PAIN. HOB ELEVATED AT ALL TIMES. BED ALARM ON. BED IN LOWEST AND LOCKED POSITION. CALL LIGHT WITHIN REACH. RIGHT BUTTOCK DRESSING CHANGED ORDERED. HEELS OFFLOADED AT ALL TIMES. TURNED AND REPOSITIONED [id number]. GT DRESSING CLEAN, DRY AND INTACT. NO SEIZURE NOTED. KEPT PATIENT CLEAN AND DRY.
[2022-01-25] MEDS: [UNRECOGNIZED DRUG - MIXTURE] GT SCH ×6 (06:36→21:08)
--- NOTE | 2022-01-25 07:28 | NUR ---
TELE OPENING NOTES RECEIVED PT IN BED WITH EYES CLOSED, EASY TO AROUSE, NON-VERBAL. NO S/SX OF DISTRESS NOTED. PT DOES NOT APPEAR TO BE IN ANY PAIN VIA FLACC SCALE. WITH TRACH CONNECTED TO COOL AEROSOL 28% 5L. IV ACCESS RHAND#20 PATENT AND INTACT WITH NS 0.9% RUNNING AT 75MLS/HR. PT WITH EXTERNAL DELIVERER OUTSIDE WITH SINUS RHYTHM READY 79. SAFETY AND SEIZURE PRECAUTIONS IN PLACE WITH BED LOCKED AT LOW POSITION WITH SIDE RAILS UP X 2. WILL CONTINUE TO MONITOR PATIENT THROUGHOUT SHIFT.
[2022-01-25 08:00] VITALS: BP 102/62
[2022-01-25] MEDS: PANTOPRAZOLE 40 MG TABLET.DR PO SCH (08:07)
[2022-01-25] MEDS: FAMOTIDINE (20 MG) 20 MG TABLET PO SCH ×2 (08:38→21:12)
[2022-01-25] MEDS: FLUCONAZOLE (100 MG) 100 MG TABLET PO SCH ×2 (08:38→16:30)
[2022-01-25] MEDS: PROPRANOLOL HCL 10 MG TABLET PO SCH ×2 (08:38→16:55)
[2022-01-25] MEDS: CALCIUM POLYCARBOPHIL 625 MG TABLET PO SCH ×2 (08:38→16:27)
[2022-01-25] MEDS: ASPIRIN EC 81 MG TABLET.DR PO SCH (08:38)
[2022-01-25] MEDS: ACIDOPHILUS/BULGARICUS 1 EACH TAB.CHEW PO SCH ×2 (08:38→16:30)
[2022-01-25] MEDS: CLOTRIMAZOLE 1% OT SCH ×2 (08:38→16:27)
[2022-01-25] MEDS: VITAMIN B COMP W-C 1 TAB TABLET PO SCH (08:38)
[2022-01-25] MEDS: MULTIVIT W/MINERALS 1 TAB TABLET PO SCH (08:38)
--- NOTE | 2022-01-25 08:40 | NUR ---
RN NOTE PROPANOLOL 10MG BLOOD PRESSURE MEDICATION HELD FOR AM D/T LOW BP 102/62. WILL CONTINUE TO MONITOR.
[2022-01-25] MEDS: NEOMY SULF/BACITRAC ZN/POLY 15 GM TUBE TP SCH ×2 (08:56→16:31)
[2022-01-25] MEDS: IV NS 0.9% 1,000 ML IV PRN (10:23)
--- NOTE | 2022-01-25 11:02 | NUR ---
RT PT RECVD ON SHILEY 4 TRACH ON COOL AEROSOL FIO2 28% VIA T-BAR. TRACH IS PATENT AND SECURED. SPO2 >98% MAINTAINED. SUCTION Q2 AND PRN, SPARE TRACH AND AMBU BAG AT BEDSIDE. NO SOB OR RESPIRATORY DISTRESS NOTED AT THIS TIME. PT BROTHER IS AT BEDSIDE.
[2022-01-25 12:00] VITALS: BP 123/73
--- NOTE | 2022-01-25 15:25 | NUR ---
RN NOTE BROTHISMAEL YAP AT BEDSIDE WITNESSED 90 SECOND SEIZURE ACTIVITY WITH PATIENT AT 1515 LASTING 90 SECONDS. ADMINISTERED ATIVAN [address] PRN[address] DR[address] CASEY MADE AWARE. WILL MONITOR PATIENT CLOSELY.
--- NOTE | 2022-01-25 15:45 | NUR ---
RN NOTE SPOKE WITH DR. CASEY WITH NEW ORDERS FOR STAT LAB ORDERS; ORDERS READ BACK AND CARRIED OUT.
[2022-01-25 16:00] VITALS: BP_SYST 87; BP_SYST 97; BP_DIAS 55; BP_DIAS 71
[2022-01-25] MEDS ORDERED: LEVETIRACETAM (500MG) 1,000 MG in IV NS 0.9% 100 ML IV ONE (16:00)
[2022-01-25] MEDS: FUROSEMIDE 20 MG/2 ML VIAL IV SCH (16:30)
[2022-01-25] MEDS ORDERED: IV Sodium Chloride 3% 500 ML 500 ML IV ONE ×2 (16:30→18:00)
[2022-01-25 16:41] LABS: THYROID STIMULATING HORMONE 2.996 uIU/mL (0.358-3.74)
[2022-01-25 16:51] LABS: PHOSPHORUS 3.7 mg/dL (2.5-4.9)
--- NOTE | 2022-01-25 17:02 | NUR ---
RN NOTE PT SEEN AT BEDSIDE BY MARILYN EDWARDS NP WITH NEW ORDERS FOR BMP IN 6HRS; ORDERS READ BACK AND CARRIED OUT.
--- NOTE | 2022-01-25 17:04 | NUR ---
RN NOTE HELD BOLUS TUBE FEEDING FOR 1700 PER MARILYN EDWARDS NP.
--- NOTE | 2022-01-25 17:32 | NUR ---
RN NOTE 1630 LASIX 20MG IV HELD PER MD ORDER
[2022-01-25] MEDS ORDERED: LEVETIRACETAM (250 MG) 250 MG TABLET PO SCH (18:00)
--- NOTE | 2022-01-25 18:00 | NUR ---
RN NOTE ORDERS RECEIVED FROM DR. WEBSTER (NEPHRO) FOR NS 3% @50MLS/HR FOR 10 HOURS WITH SODIUM SERUM Q4H. ORDERS READ BACK AND CARRIED OUT.
--- NOTE | 2022-01-25 18:53 | NUR ---
TELE CLOSING NOTES PT IN BED WITH EYES CLOSED. BROTHISMAEL YAP AT BEDSIDE. NON-VERBAL. NO S/SX OF DISTRESS NOTED. PT DOES NOT APPEAR TO BE IN ANY PAIN VIA FLACC SCALE. WITH TRACH CONNECTED TO COOL AEROSOL 28% 5L. IV ACCESS RHAND#20 PATENT AND INTACT WITH NS 3% RUNNING AT 80MLS/HR. PT WITH EXTERNAL SALES ANALYST WITH SINUS RHYTHM 84. SAFETY AND SEIZURE PRECAUTIONS IN PLACE WITH BED LOCKED AT LOW POSITION WITH SIDE RAILS UP X 2. ALL NEEDS MET THROUGHOUT SHIFT. WILL ENDORSE CONTINUITY OF CARE TO ONCOMING SHIFT.
--- NOTE | 2022-01-25 19:30 | NUR ---
STONE BELT SANDER NOTES RECEIVED ON BED,NO VERBAL,OPEN EYES, BROTHER AT BEDSIDE.ON SEIZURE PRECAUTION,SIDE RAILS PADDED FOR SAFETY,IVF NS 3% INFUSING WELL AT 50ML/HR RATE VIA IV PUMP ON RIGHT HAND,SITE PATENT.FULL CODE,WILL CONTINUE TO MONITOR STATUS.
[2022-01-25 20:00] VITALS: BP 105/69
--- NOTE | 2022-01-25 21:00 | NUR ---
FURNITURE DECALS INSPECTOR NOTES GT FEEDING HELD DUE SEIZURE ACTIVITY EARLIER ON DAYTIME AROUND 1700.
[2022-01-25] MEDS: LEVETIRACETAM (250 MG) 250 MG TABLET PO SCH (21:12)
[2022-01-25] MEDS: ENOXAPARIN SODIUM 40 MG/0.4 ML DISP.SYRIN SQ SCH (21:13)
[2022-01-25 22:50] LABS: CALCIUM, SERUM 8.1 mg/dL (8.5-10.1); CREATININE 0.3 mg/dL (0.6-1.3); POTASSIUM 4.3 mmol/L (3.5-5.1)
--- NOTE | 2022-01-25 22:50 | NUR ---
PASTEURISER OPERATOR NOTES NA LEVEL THIS TIME 117,CHARGE NURSE AWARE.
[2022-01-26] VITALS: BP 129/85
--- NOTE | 2022-01-26 03:30 | NUR ---
WEB OFFSET PRESS FEEDER NOTES IVF NS 3% COMPLETED,BMP THIS MORNING.
[2022-01-26 04:00] VITALS: BP 117/71
--- NOTE | 2022-01-26 04:30 | NUR ---
VIDEO COORDINATOR NOTES MORNING CARE RENDERED,TOLERATED WELL.NO EPISODE OF SEIZURE NOTED,FAIRLY RESTED,O2 SAT 99% ON COOL AEROSOL.SIDE RAILS REMAINS PADDED FOR SAFETY.IN NO ACUTE DISTRESS.WILL ENDORSE TO DAY NURSE FOR TO.
[2022-01-26 06:54] LABS: BASOPHILS % (AUTO) 0.1 % (0.0-2.0); EOSINOPHILS % (AUTO) 0.3 % (0.0-6.0); HEMATOCRIT 29 % (33-45); LYMPHOCYTES # (AUTO) 0.7 K/uL (0.8-4.8); LYMPHOCYTES % (AUTO) 15.5 % (20.0-44.0); MEAN CORPUSCULAR HGB CONC 35 g/dl (31.0-36.0); MEAN CORPUSCULAR VOLUME 92 fL (82-100); MONOCYTES # (AUTO) 0.4 K/uL (0.1-1.30); MONOCYTES % (AUTO) 8.1 % (2.0-12.0); NEUTROPHILS # (AUTO) 3.6 K/uL (1.8-8.9); PLATELET COUNT (AUTO) 285 K/uL (150-450); RED BLOOD CELL COUNT(AUTO) 3.16 MIL/uL (4.0-5.2); WHITE BLOOD COUNT (AUTO) 4.7 K/uL (4.3-11.0)
[2022-01-26 06:59] LABS: CREATININE 0.4 mg/dL (0.6-1.3)
[2022-01-26 07:10] LABS: POTASSIUM 4.4 mmol/L (3.5-5.1)
--- NOTE | 2022-01-26 07:30 | NUR ---
RN OPENING NOTE Patient in bed, asleep. A/O x 1, non verbal. On O2 at 5 LPM with aerosol via T-piece. No SOB or s/s of distress noted. IV access on Right hand intact and patent. Safety precautions in place: bed in low, locked position; siderails up x 2; call light within reach. Will continue to monitor.
[2022-01-26] MEDS: [UNRECOGNIZED DRUG - MIXTURE] GT SCH ×5 (08:21→21:28)
[2022-01-26] MEDS: ACIDOPHILUS/BULGARICUS 1 EACH TAB.CHEW PO SCH ×2 (08:22→17:29)
[2022-01-26] MEDS: LEVETIRACETAM (250 MG) 250 MG TABLET PO SCH ×2 (08:22→21:25)
[2022-01-26] MEDS: ASPIRIN EC 81 MG TABLET.DR PO SCH (08:22)
[2022-01-26] MEDS: PANTOPRAZOLE 40 MG TABLET.DR PO SCH (08:22)
[2022-01-26] MEDS: FAMOTIDINE (20 MG) 20 MG TABLET PO SCH ×2 (08:22→21:25)
[2022-01-26] MEDS: MULTIVIT W/MINERALS 1 TAB TABLET PO SCH (08:28)
[2022-01-26] MEDS: FUROSEMIDE 20 MG/2 ML VIAL IV SCH (08:29)
[2022-01-26] MEDS: FLUCONAZOLE (100 MG) 100 MG TABLET PO SCH ×2 (08:29→17:29)
[2022-01-26] MEDS: PROPRANOLOL HCL 10 MG TABLET PO SCH ×2 (08:29→17:00)
[2022-01-26] MEDS: NEOMY SULF/BACITRAC ZN/POLY 15 GM TUBE TP SCH ×2 (08:32→17:51)
[2022-01-26 08:33] VITALS: BP 124/77
[2022-01-26] MEDS: CALCIUM POLYCARBOPHIL 625 MG TABLET PO SCH ×2 (08:33→17:29)
[2022-01-26] MEDS: VITAMIN B COMP W-C 1 TAB TABLET PO SCH (08:33)
[2022-01-26] MEDS: CLOTRIMAZOLE 1% OT SCH ×2 (08:33→17:51)
[2022-01-26 11:36] VITALS: BP 126/79
[2022-01-26 15:48] VITALS: BP 92/65
--- NOTE | 2022-01-26 19:30 | NUR ---
EVAPORATOR NOTES RECEIVED ON BED WITH EYES CLOSED,NON VERBAL,BREATHING EVEN AND UNLABORED,ON TRACH TO COOL AEROSOL,O2 SAT 98%,SALINE LOCK RIGHT HAND INTACT AND PATENT,FAMILY MEMBER AT BEDSIDE. WILL CONTINUE TO MONITOR STATUS.
--- NOTE | 2022-01-26 19:57 | NUR ---
RN CLOSING NOTE Patient in bed, asleep. On O2 at 5 LPM with aerosol via T-piece. No SOB or s/s of distress noted. No seizures the whole shift. Due meds given. Wound care done, as ordered. Safety precautions in place: bed in low, locked position; siderails up x 2; call light within reach. Will endorse to weight shifter nurse for TO.
[2022-01-26 20:00] VITALS: BP 117/81
[2022-01-26] MEDS: ENOXAPARIN SODIUM 40 MG/0.4 ML DISP.SYRIN SQ SCH (21:27)
[2022-01-27] VITALS: BP 122/78
[2022-01-27 04:00] VITALS: BP 116/76
--- NOTE | 2022-01-27 06:31 | NUR ---
EMERGENCY MEDICAL TECH NOTES FAIRLY RESTED AT NIGHT,NO SEIZURE ACTIVITY NOTED,SIDE RAILS PADDED FOR SAFETY,GT BOLUS FEEDING TOLERATED WELL,NO N/V/D NOTED.IN NO ACUTE DISTRESS.LATEST SODIUM LEVEL 120.ENDORSE TO DAY NURSE FOR TO.
[2022-01-27 07:04] LABS: CALCIUM, SERUM 8.9 mg/dL (8.5-10.1); CREATININE 0.4 mg/dL (0.6-1.3); POTASSIUM 3.8 mmol/L (3.5-5.1)
--- NOTE | 2022-01-27 07:19 | NUR ---
TELE OPENING NOTES RECEIVED PT IN BED WITH EYES CLOSED, EASY TO AROUSE, NON-VERBAL. NO S/SX OF DISTRESS NOTED. PT DOES NOT APPEAR TO BE IN ANY PAIN VIA FLACC SCALE. PATIENT IS BREATHING EVENLY AND NONLABORED WITH TRACH CONNECTED TO COOL AEROSOL 28% 5L. IV ACCESS TO R HAND#20 PATENT AND INTACT. PT WITH EXTERNAL SLITTER AND REWINDER WITH SINUS RHYTHM. CRITICAL LAB VALUE 114 SODIUM, RELAYED TO NEW LAB ORDERS AND SODIUM ORDERED. SAFETY AND SEIZURE PRECAUTIONS IN PLACE WITH BED LOCKED AT LOW POSITION WITH SIDE RAILS UP X 2. WILL CONTINUE TO MONITOR
[2022-01-27] MEDS ORDERED: IV Sodium Chloride 3% 500 ML 500 ML IV SCH (07:30)
[2022-01-27] MEDS: PANTOPRAZOLE 40 MG TABLET.DR PO SCH (07:40)
[2022-01-27] MEDS: [UNRECOGNIZED DRUG - MIXTURE] GT SCH ×5 (07:40→21:15)
[2022-01-27 08:04] LABS: BASOPHILS % (AUTO) 0.3 % (0.0-2.0); EOSINOPHILS % (AUTO) 0.3 % (0.0-6.0); HEMATOCRIT 30 % (33-45); HEMOGLOBIN 10.2 g/dL (11.5-14.8); LYMPHOCYTES # (AUTO) 0.7 K/uL (0.8-4.8); LYMPHOCYTES % (AUTO) 8.9 % (20.0-44.0); MEAN CORPUSCULAR HGB CONC 34 g/dl (31.0-36.0); MEAN CORPUSCULAR VOLUME 92 fL (82-100); MONOCYTES # (AUTO) 0.2 K/uL (0.1-1.30); NEUTROPHILS % (AUTO) 87.5 % (43.0-81.0); PLATELET COUNT (AUTO) 272 K/uL (150-450); RED BLOOD CELL COUNT(AUTO) 3.28 MIL/uL (4.0-5.2)
[2022-01-27 08:06] VITALS: BP 109/64
[2022-01-27] MEDS: LEVETIRACETAM (250 MG) 250 MG TABLET PO SCH ×2 (08:22→21:02)
[2022-01-27] MEDS: FAMOTIDINE (20 MG) 20 MG TABLET PO SCH ×2 (08:22→21:03)
[2022-01-27] MEDS: MULTIVIT W/MINERALS 1 TAB TABLET PO SCH (08:22)
[2022-01-27] MEDS: PROPRANOLOL HCL 10 MG TABLET PO SCH ×2 (08:23→16:07)
[2022-01-27] MEDS: ACIDOPHILUS/BULGARICUS 1 EACH TAB.CHEW PO SCH ×2 (08:24→16:07)
[2022-01-27] MEDS: FLUCONAZOLE (100 MG) 100 MG TABLET PO SCH ×2 (08:24→16:07)
[2022-01-27] MEDS: FUROSEMIDE 20 MG/2 ML VIAL IV SCH (08:24)
[2022-01-27] MEDS: CLOTRIMAZOLE 1% OT SCH ×2 (08:24→16:01)
[2022-01-27] MEDS: CALCIUM POLYCARBOPHIL 625 MG TABLET PO SCH ×2 (08:25→16:01)
[2022-01-27] MEDS: ASPIRIN EC 81 MG TABLET.DR PO SCH (08:25)
[2022-01-27] MEDS: VITAMIN B COMP W-C 1 TAB TABLET PO SCH (08:25)
[2022-01-27] MEDS: NEOMY SULF/BACITRAC ZN/POLY 15 GM TUBE TP SCH ×2 (08:25→16:01)
--- NOTE | 2022-01-27 12:17 | NUR ---
RN NOTE MD ORDERED URINE NA LEVEL AND 1 X ORDER FOR STRAIGHT CATHETERIZATION.
[2022-01-27 13:36] LABS: CALCIUM, SERUM 8.3 mg/dL (8.5-10.1); CREATININE 0.4 mg/dL (0.6-1.3); POTASSIUM 3.6 mmol/L (3.5-5.1)
--- NOTE | 2022-01-27 14:02 | NUR ---
RN NOTE CRITICAL LAB VALUE NA 116 .PT ON NA REPLACEMENT RUNNING 30ML/HR. NOTIFIED NO NEW ORDER AT THIS TIME.
[2022-01-27 15:57] VITALS: BP 101/62
--- NOTE | 2022-01-27 18:20 | NUR ---
TELE CLOSING NOTES PT IN BED WITH EYES CLOSED. BROTHISMAEL YAP AT BEDSIDE. NON-VERBAL. NO S/SX OF DISTRESS NOTED. PT DOES NOT APPEAR TO BE IN ANY PAIN VIA FLACC SCALE. BREATHING EVENLY AND NONLABORED WITH TRACH CONNECTED TO COOL AEROSOL 28% 5L. IV ACCESS RHAND#20 PATENT AND INTACT WITH SODIUM @ 30 MLS/HR. PT WITH EXTERNAL CHILD LIFE ASSISTANT WITH SINUS RHYTHM. ALL MEDICATIONS GIVEN ORDERED, TURNED AND REPOSITIONED PER PROTOCOL. SAFETY AND SEIZURE PRECAUTIONS IN PLACE WITH BED LOCKED AT LOW POSITION WITH SIDE RAILS UP X 2. ALL NEEDS MET THROUGHOUT SHIFT. WILL ENDORSE CONTINUITY OF CARE TO ONCOMING SHIFT.
--- NOTE | 2022-01-27 19:33 | NUR ---
ONLINE MARKETING SPECIALIST OPENING NOTE RECEIVED PATIENT IN BED, WITH EYES CLOSED, EASY TO AROUSE. EYE-OPENING. BROTHER AT BED SIDE. NO S/S OF APPARENT DISTRESS ON 5LPM OF O2 VIA T-PIECE WITH COOL AEROSOL. NOT EXHIBITING PAIN VIA FLACC. TELE MONITOR READING SR 74 BPM. IV SODIUM RUNNING STILL RUNNING AT THIS TIME @30 ML/HR. SAFETY IN PLACE-- RAILINGS PADDED, BED IN LOWEST, LOCKED POSITION. WILL CONTINUE WITH PATIENT'S PLAN OF CARE.
[2022-01-27 20:00] VITALS: BP 117/76
[2022-01-27] MEDS: ENOXAPARIN SODIUM 40 MG/0.4 ML DISP.SYRIN SQ SCH (21:45)
[2022-01-27 23:00] LABS: CALCIUM, SERUM 7.7 mg/dL (8.5-10.1); CREATININE 0.5 mg/dL (0.6-1.3); POTASSIUM 4.2 mmol/L (3.5-5.1)
[2022-01-28] VITALS (7 sets, daily range): BP systolic 107–128; BP diastolic 55–78
--- NOTE | 2022-01-28 07:43 | NUR ---
CENTER PUNCH OPERATOR CLOSING NOTE report given to rafa for cont. of care.
[2022-01-28] MEDS: [UNRECOGNIZED DRUG - MIXTURE] GT SCH ×5 (07:51→21:42)
[2022-01-28] MEDS: PANTOPRAZOLE 40 MG TABLET.DR PO SCH (07:51)
[2022-01-28] MEDS: LEVETIRACETAM (250 MG) 250 MG TABLET PO SCH ×2 (09:12→21:41)
[2022-01-28] MEDS: MULTIVIT W/MINERALS 1 TAB TABLET PO SCH (09:12)
[2022-01-28] MEDS: ACIDOPHILUS/BULGARICUS 1 EACH TAB.CHEW PO SCH ×2 (09:12→17:16)
[2022-01-28] MEDS: FAMOTIDINE (20 MG) 20 MG TABLET PO SCH ×2 (09:12→21:40)
[2022-01-28] MEDS: FLUCONAZOLE (100 MG) 100 MG TABLET PO SCH ×2 (09:13→17:15)
[2022-01-28] MEDS: NEOMY SULF/BACITRAC ZN/POLY 15 GM TUBE TP SCH ×2 (09:13→17:16)
[2022-01-28] MEDS: FUROSEMIDE 20 MG/2 ML VIAL IV SCH (09:13)
[2022-01-28] MEDS: PROPRANOLOL HCL 10 MG TABLET PO SCH ×2 (09:13→17:15)
[2022-01-28] MEDS: ASPIRIN EC 81 MG TABLET.DR PO SCH (09:13)
[2022-01-28] MEDS: CALCIUM POLYCARBOPHIL 625 MG TABLET PO SCH ×2 (09:15→17:14)
[2022-01-28] MEDS: VITAMIN B COMP W-C 1 TAB TABLET PO SCH (09:15)
[2022-01-28] MEDS: CLOTRIMAZOLE 1% OT SCH ×2 (09:16→17:29)
[2022-01-28 10:20] LABS: BASOPHILS % (AUTO) 0.3 % (0.0-2.0); EOSINOPHILS % (AUTO) 0.9 % (0.0-6.0); HEMATOCRIT 30 % (33-45); HEMOGLOBIN 10.1 g/dL (11.5-14.8); LYMPHOCYTES # (AUTO) 1.1 K/uL (0.8-4.8); LYMPHOCYTES % (AUTO) 20.1 % (20.0-44.0); MEAN CORPUSCULAR HGB CONC 34 g/dl (31.0-36.0); MEAN CORPUSCULAR VOLUME 92 fL (82-100); MONOCYTES # (AUTO) 0.3 K/uL (0.1-1.30); MONOCYTES % (AUTO) 4.9 % (2.0-12.0); NEUTROPHILS # (AUTO) 3.9 K/uL (1.8-8.9); NEUTROPHILS % (AUTO) 73.8 % (43.0-81.0); PLATELET COUNT (AUTO) 255 K/uL (150-450); RED BLOOD CELL COUNT(AUTO) 3.27 MIL/uL (4.0-5.2); WHITE BLOOD COUNT (AUTO) 5.3 K/uL (4.3-11.0)
[2022-01-28 10:23] LABS: CALCIUM, SERUM 8.9 mg/dL (8.5-10.1); CREATININE 0.4 mg/dL (0.6-1.3); MAGNESIUM 1.6 mg/dL (1.8-2.4); PHOSPHORUS 2.9 mg/dL (2.5-4.9); POTASSIUM 4.4 mmol/L (3.5-5.1)
[2022-01-28 10:35] LABS: THYROID STIMULATING HORMONE 5.028 uIU/mL (0.358-3.74); URIC ACID 4.8 mg/dL (2.6-7.2)
--- NOTE | 2022-01-28 10:50 | NUR ---
RN NOTES PATIENT'S BROTHER AT BEDSIDE TO VISIT PATIENT.
--- NOTE | 2022-01-28 11:06 | NUR ---
RN NOTES RT AT BEDSIDE FOR TRACH CHECK. CHANGED TO THELMA #4 UNCUFFED.
--- NOTE | 2022-01-28 11:26 | NUR ---
RN NOTES DR. CH IN THE UNIT TO SEE THE PATIENT. PER DR. CH, OK FOR PATIENT TO HAVE MIDLINE.
--- NOTE | 2022-01-28 15:23 | NUR ---
RN NOTES INFORMED PATIENT'S BROTHER, FRACISCO, ABOUT DR. SAMANO'S ORDER FOR THORAENTESIS PROCEDURE AND ATTEMPTED TO OBTAIN CONSENT. PER FRACISCO, HE DOES NOT FEEL COMFORTABLE ABOUT THE PROCEDURE AT THIS TIME AND WOULD LIKE TO SPEAK WITH MD FIRST BEFORE CONSENTING. DR. SAMANO MADE AWARE VIA SECURE MESSAGE.
--- NOTE | 2022-01-28 15:58 | NUR ---
RN BROTHER SEGURA, SPOKE W/ DR. SAMANO OVER THE PHONE AND INFORMED ABOUT RESPIRATORY PLAN OF CARE AND THORACENTESIS PROCEDURE. BROTHER PROVIDED CONSENT AND SIGNED FORM FOR THORACENTESIS ON BEHALF OF PATIENT. CONSENT FORM PLACED IN PATIENT'S CHART.
--- NOTE | 2022-01-28 18:27 | NUR ---
RT CHANGED TRACH TO OLD THELMA DCT 4 WITH BACK UP STILL AT BEDSIDE
--- NOTE | 2022-01-28 19:16 | NUR ---
RN NOTES BEDSIDE ENDORSEMENT GIVEN TO BOAT FINISHER RN FOR TO.
--- NOTE | 2022-01-28 19:40 | NUR ---
receive in bed side rails padded HOB up 30 degress aspi precautions
[2022-01-29] VITALS (7 sets, daily range): BP systolic 100–137; BP diastolic 67–77
[2022-01-29] MEDS: [UNRECOGNIZED DRUG - MIXTURE] GT SCH ×5 (06:09→21:13)
[2022-01-29 06:35] LABS: BASOPHILS % (AUTO) 0.2 % (0.0-2.0); EOSINOPHILS % (AUTO) 0.9 % (0.0-6.0); HEMATOCRIT 29 % (33-45); HEMOGLOBIN 9.7 g/dL (11.5-14.8); LYMPHOCYTES # (AUTO) 0.9 K/uL (0.8-4.8); LYMPHOCYTES % (AUTO) 12.8 % (20.0-44.0); MEAN CORPUSCULAR HGB CONC 34 g/dl (31.0-36.0); MEAN CORPUSCULAR VOLUME 91 fL (82-100); MONOCYTES # (AUTO) 0.3 K/uL (0.1-1.30); MONOCYTES % (AUTO) 4.4 % (2.0-12.0); NEUTROPHILS # (AUTO) 5.9 K/uL (1.8-8.9); NEUTROPHILS % (AUTO) 81.7 % (43.0-81.0); PLATELET COUNT (AUTO) 249 K/uL (150-450); RED BLOOD CELL COUNT(AUTO) 3.13 MIL/uL (4.0-5.2); WHITE BLOOD COUNT (AUTO) 7.2 K/uL (4.3-11.0)
[2022-01-29 06:41] LABS: CALCIUM, SERUM 8.5 mg/dL (8.5-10.1); POTASSIUM 4.2 mmol/L (3.5-5.1)
--- NOTE | 2022-01-29 06:42 | NUR ---
eyes open nonverbal wound care to the right buttock incomntinent stool formed asp precautions bolus feeding via prg as ordered
[2022-01-29 07:04] LABS: CREATININE 0.5 mg/dL (0.6-1.3)
[2022-01-29] MEDS: FLUCONAZOLE (100 MG) 100 MG TABLET PO SCH ×2 (08:11→16:03)
[2022-01-29] MEDS: MULTIVIT W/MINERALS 1 TAB TABLET PO SCH (08:11)
[2022-01-29] MEDS: FAMOTIDINE (20 MG) 20 MG TABLET PO SCH ×2 (08:11→21:12)
[2022-01-29] MEDS: LEVETIRACETAM (250 MG) 250 MG TABLET PO SCH ×2 (08:11→21:12)
[2022-01-29] MEDS: FUROSEMIDE 20 MG/2 ML VIAL IV SCH (08:11)
[2022-01-29] MEDS: PANTOPRAZOLE 40 MG TABLET.DR PO SCH (08:11)
[2022-01-29] MEDS: ACIDOPHILUS/BULGARICUS 1 EACH TAB.CHEW PO SCH ×2 (08:11→16:04)
[2022-01-29] MEDS: ASPIRIN EC 81 MG TABLET.DR PO SCH (08:11)
[2022-01-29] MEDS: VITAMIN B COMP W-C 1 TAB TABLET PO SCH (08:11)
[2022-01-29] MEDS: CALCIUM POLYCARBOPHIL 625 MG TABLET PO SCH ×2 (08:12→16:04)
[2022-01-29] MEDS: PROPRANOLOL HCL 10 MG TABLET PO SCH ×2 (08:12→16:03)
[2022-01-29] MEDS: NEOMY SULF/BACITRAC ZN/POLY 15 GM TUBE TP SCH ×2 (08:13→16:05)
[2022-01-29] MEDS: CLOTRIMAZOLE 1% OT SCH ×2 (08:13→16:02)
--- NOTE | 2022-01-29 10:35 | NUR ---
RN NOTES SPOKE W/ DR. CH'S INTENSIVE CARE MEDICINE SPECIALIST STUDENT AND INFORMED ABOUT STANDING ORDER FOR THORACENTESIS PROCEDURE AND MIDLINE INSERTION. PER STUDENT INTENSIVE CARE MEDICINE SPECIALIST, HE WILL INFORM DR. CH THAT PATIENT'S BROTHER WOULD LIKE TO SPEAK WITH HIM TODAY.
--- NOTE | 2022-01-29 11:00 | NUR ---
RN NOTES RECEIVED CALL FROM [facility], AND INFORMED THAT PATIENT DOES NOT HAVE LATEST PT/INR FOR THORACENTESIS PROCEDURE. DR. CH MADE AWARE W/ ORDER NOTED.
--- NOTE | 2022-01-29 11:56 | NUR ---
RN NOTES PUREWICK ATTACHED TO PATIENT FOR INCONTINENCE MANAGEMENT.
[2022-01-29] MEDS: SODIUM CHLORIDE 1000 MG TABLET GT SCH ×2 (12:14→16:03)
--- NOTE | 2022-01-29 14:18 | NUR ---
RN NOTES PATIENT'S DAD AT BEDSIDE TO VISIT PATIENT. PROVIDED STAFF W/ PATIENT'S HOME FORMULARY BOLUS FEEDING, PLACED IN THE MED ROOM.
--- NOTE | 2022-01-29 14:30 | NUR ---
SPOKE TO ELIN AT 1100 TO ORDER CURRENT INR FOR PATIENT UNABLE TO PERFORM THORACENTESIS AT THIS TIME
--- NOTE | 2022-01-29 14:32 | NUR ---
AT 1430 NO INR ORDERED YET FOR THORACENTESIS
--- NOTE | 2022-01-29 14:58 | NUR ---
RN NOTES RECEIVED CALL FROM [facility]; PER [facility], THORACENTESIS WILL BE DONE TOMORROW THE RADIOLOGIST WOULD NOT BE ABLE TO DO IT ANYMORE AT THIS TIME.
--- NOTE | 2022-01-29 16:59 | NUR ---
RN NOTES URINE SAMPLE COLLECTED FROM [employer] COLLECTION CANISTER; SAMPLE PLACED IN THE REFRIGERATOR, READY FOR PICKUP.
--- NOTE | 2022-01-29 18:04 | NUR ---
RN NOTES SPOKE W/ FRACISCO, BROTHER, AND INFORMED ABOUT LATEST PROGRESS AND PATIENT'S CONDITION; ALSO INFORMED ABOUT THORACENTESIS BEING SCHEDULED FOR TOMORROW, VERBALIZED UNDERSTANDING. PER BROTHER, HE STILL WOULD LIKE TO TALK TO DR. CH. INFORMED BROTHER THAT DR. CH HAD BEEN MADE AWARE.
--- NOTE | 2022-01-29 19:20 | NUR ---
PRESS ASSISTANT AND FEEDER OPENING NOTES: RECEIVED PATIENT IN BED, NON VERBAL. HOB ELEVATED. NO S/S OF DISTRESS NOTED. NOT IN PAIN. CALLLIGHTWITHIN REACH. BED ALARM ON. BED INLOWEST AND LOCKED POSITION. SIDERAILS PADDED. WITH TRACH INTACT CONNECTED TO COOL AEROSOL, TRACH SUCTIONED. FATHER AT THE BEDSIDE. ON TELE MONITOR WITH SINUS 78. HEELS OFFLOADED.
[2022-01-29 20:21] LABS: CALCIUM RNDM,URINE 20.5 mg/dL (2.0-17.5); URINE TOTAL PROTEIN 23.2 mg/dL (0-11.9)
[2022-01-29] MEDS: Z GUARD REMEDY 4 OZ OINT TP PRN (21:15)
[2022-01-30] VITALS: BP 112/80
[2022-01-30 04:00] VITALS: BP 125/84
[2022-01-30] MEDS: [UNRECOGNIZED DRUG - MIXTURE] GT SCH ×5 (05:58→21:00)
--- NOTE | 2022-01-30 07:44 | NUR ---
RN CLOSING NOTES: PATIENT IN BED, ASLEEP, EASILY AROUSABLE. NO S/S OF DISTRESS NOTED. BED ALARM ON. BED IN LOWEST AND LOCKED POSITION. HOB ELEVATED AT ALL TIMES. HEELS OFFLOADED. TURNED AND REPOSITIONED Q 2HOURS.
--- NOTE | 2022-01-30 07:53 | NUR ---
RN OPENING NOTE PATIENT RECEIVED IN BED, NON VERBAL, ABLE TO RESPONDS PHYSICAL STIMULI. IN NO ACUTE DISTRESS NOTED. RESPIRATORY EVEN AND UNLABORED ON TRACH AND T PIECE AT 5Ls. SKIN IS WARM TO TOUCH, KEEP CLEAN/DRY, INTACT IV SITE. KEPT ELEVATED HOB FOR ENSURE AIRWAY AND ASPIRATION PRECAUTION, ALSO LOWEST POSITION OF THE BED, S/R UP X 3 FOR SAFETY. ALL SAFETY PRECAUTION APPLIED. CALL LIGHT WITHIN REACH, WILL CONTINUE TO MONITOR.
[2022-01-30 08:00] VITALS: BP 118/81
[2022-01-30] MEDS: Z GUARD REMEDY 4 OZ OINT TP PRN (09:23)
[2022-01-30] MEDS: VITAMIN B COMP W-C 1 TAB TABLET PO SCH (09:23)
[2022-01-30] MEDS: MULTIVIT W/MINERALS 1 TAB TABLET PO SCH (09:24)
[2022-01-30] MEDS: ACIDOPHILUS/BULGARICUS 1 EACH TAB.CHEW PO SCH ×2 (09:24→16:16)
[2022-01-30] MEDS: PANTOPRAZOLE 40 MG TABLET.DR PO SCH (09:25)
[2022-01-30] MEDS: FAMOTIDINE (20 MG) 20 MG TABLET PO SCH ×2 (09:25→21:01)
[2022-01-30] MEDS: SODIUM CHLORIDE 1000 MG TABLET GT SCH ×2 (09:25→16:16)
[2022-01-30] MEDS: PROPRANOLOL HCL 10 MG TABLET PO SCH ×2 (09:26→16:18)
[2022-01-30] MEDS: LEVETIRACETAM (250 MG) 250 MG TABLET PO SCH ×2 (09:26→21:01)
[2022-01-30] MEDS: FUROSEMIDE 20 MG/2 ML VIAL IV SCH (09:27)
[2022-01-30] MEDS: FLUCONAZOLE (100 MG) 100 MG TABLET PO SCH ×2 (09:27→16:16)
[2022-01-30] MEDS: ASPIRIN EC 81 MG TABLET.DR PO SCH (09:27)
[2022-01-30] MEDS: CLOTRIMAZOLE 1% OT SCH ×2 (09:28→16:21)
[2022-01-30] MEDS: NEOMY SULF/BACITRAC ZN/POLY 15 GM TUBE TP SCH ×2 (09:28→16:18)
[2022-01-30] MEDS: CALCIUM POLYCARBOPHIL 625 MG TABLET PO SCH ×2 (09:34→16:16)
[2022-01-30] MEDS: UREA 15 GM PO SCH (09:34)
[2022-01-30 09:36] LABS: BASOPHILS % (AUTO) 0.5 % (0.0-2.0); HEMATOCRIT 31 % (33-45); HEMOGLOBIN 10.5 g/dL (11.5-14.8); LYMPHOCYTES # (AUTO) 1.3 K/uL (0.8-4.8); LYMPHOCYTES % (AUTO) 19.7 % (20.0-44.0); MEAN CORPUSCULAR HGB CONC 34 g/dl (31.0-36.0); MEAN CORPUSCULAR VOLUME 92 fL (82-100); MONOCYTES # (AUTO) 0.3 K/uL (0.1-1.30); MONOCYTES % (AUTO) 4.7 % (2.0-12.0); NEUTROPHILS # (AUTO) 4.9 K/uL (1.8-8.9); NEUTROPHILS % (AUTO) 74.1 % (43.0-81.0); PLATELET COUNT (AUTO) 221 K/uL (150-450); RED BLOOD CELL COUNT(AUTO) 3.38 MIL/uL (4.0-5.2); WHITE BLOOD COUNT (AUTO) 6.6 K/uL (4.3-11.0)
[2022-01-30 10:07] LABS: CALCIUM, SERUM 8.7 mg/dL (8.5-10.1); CREATININE 0.3 mg/dL (0.6-1.3); MAGNESIUM 1.9 mg/dL (1.8-2.4); PHOSPHORUS 3.9 mg/dL (2.5-4.9); POTASSIUM 5.1 mmol/L (3.5-5.1)
--- NOTE | 2022-01-30 10:30 | NUR ---
PATIENT FINISHED THORACENTESIS AND 710 ML OUTPUT ON LEFT SIDE. IN NO ACUTE DISTRESS DISTRESS OBSERVED. RESPIRATORY EVEN AND UNLABORED ON TRACH CONNECTING TO T PEACE AT 5Ls. PATIENT'S BROTHER AT BEDSIDE. CALL LIGHT WITHIN REACH, WILL CONTINUE TO MONITOR.
[2022-01-30 12:00] VITALS: BP 104/68
[2022-01-30] MEDS ORDERED: IV Sodium Chloride 3% 500 ML 500 ML IV SCH (12:00)
[2022-01-30 16:00] VITALS: BP 102/69
--- NOTE | 2022-01-30 18:57 | NUR ---
RN CLOSING NOTE PATENT IN BED, IN NO ACUTE DISTRESS OBSERVED. RESPIRATORY EVEN AND UNLABORED ON TRACH WITH T PIECE AT 5Ls. SKIN IS WARM TO TOUCH KEEP CLEAN/DRY, INTACT IV SITE. KEPT ELEVATE HOB FOR ASPIRATION PRECAUTION AND ENSURE AIRWAY, ALSO LOWEST POSITION OF THE BED FOR SAFETY. CALL LIGHT WITHIN REACH, WILL ENDORSE TO TURBINE ENGINEER.
--- NOTE | 2022-01-30 19:35 | NUR ---
RN NOTES RECEIVED PATIENT SLEEPING BUT AROUSABLE, ON T-PIECE, SR ON TELE MONITOR HR-79, G-TUBE FEEDING CLAMPED- USED FOR BOLUS, NOT IN DISTRESS, SIDERAILSUPX2, NO PAIN NOTED, WILL CONTINUE TO MONITOR
[2022-01-30 20:00] VITALS: BP 112/74
[2022-01-31] VITALS (7 sets, daily range): BP systolic 84–121; BP diastolic 62–80
[2022-01-31] MEDS: [UNRECOGNIZED DRUG - MIXTURE] GT SCH ×5 (06:08→20:23)
--- NOTE | 2022-01-31 06:40 | NUR ---
RN NOTES SLEEPING BUT AROUSABLE, MORNING CARE RENDERED, NO PAIN NOTED, NO SOB, SIDERAILSUPX2, PT. NEEDS ATTENDED
--- NOTE | 2022-01-31 07:18 | NUR ---
GLOBAL PRODUCT MANAGER OPENING NOTE RECEIVED PATIENT IN BED, ASLEEP NON VERBAL, RESPONSIVE TO RESPOND PHYSICAL STIMULUS. WITH T-PIECE ON 5LPM WITH EQUAL AND UNLABORED BREATHING. WITH TOBI MIDLINE ON SALINE LOCK, PATENT AND INTACT. PATIENT ON 1 LITER FLUID RESTRICTION. COMFORT MEASURES PROVIDED. NO APPARENT SEIZURE NOTED. ON STRICT ASPIRATION PRECAUTION. SAFETY MEASURES ENSURED WITH BED ON LOW, LOCKED POSITION, SIDERAILS RAISED AND PADDED. CALL LIGHT WITHIN REACH. WILL CONTINUE TO MONITOR PATIENT.
[2022-01-31 07:43] LABS: BASOPHILS % (AUTO) 0.3 % (0.0-2.0); EOSINOPHILS % (AUTO) 0.4 % (0.0-6.0); HEMATOCRIT 30 % (33-45); HEMOGLOBIN 10.1 g/dL (11.5-14.8); LYMPHOCYTES # (AUTO) 0.8 K/uL (0.8-4.8); LYMPHOCYTES % (AUTO) 10.1 % (20.0-44.0); MEAN CORPUSCULAR HGB CONC 34 g/dl (31.0-36.0); MEAN CORPUSCULAR VOLUME 92 fL (82-100); MONOCYTES # (AUTO) 0.4 K/uL (0.1-1.30); MONOCYTES % (AUTO) 4.9 % (2.0-12.0); NEUTROPHILS # (AUTO) 6.3 K/uL (1.8-8.9); NEUTROPHILS % (AUTO) 84.3 % (43.0-81.0); PLATELET COUNT (AUTO) 233 K/uL (150-450); RED BLOOD CELL COUNT(AUTO) 3.23 MIL/uL (4.0-5.2); WHITE BLOOD COUNT (AUTO) 7.5 K/uL (4.3-11.0)
[2022-01-31] MEDS: SODIUM CHLORIDE 1000 MG TABLET GT SCH ×2 (08:38→17:23)
[2022-01-31] MEDS: PANTOPRAZOLE 40 MG TABLET.DR PO SCH (08:38)
[2022-01-31] MEDS: ASPIRIN EC 81 MG TABLET.DR PO SCH (08:38)
[2022-01-31] MEDS: FUROSEMIDE 20 MG/2 ML VIAL IV SCH (08:38)
[2022-01-31] MEDS: FLUCONAZOLE (100 MG) 100 MG TABLET PO SCH ×2 (08:39→17:16)
[2022-01-31] MEDS: FAMOTIDINE (20 MG) 20 MG TABLET PO SCH ×2 (08:40→20:24)
[2022-01-31] MEDS: ACIDOPHILUS/BULGARICUS 1 EACH TAB.CHEW PO SCH ×2 (08:40→17:16)
[2022-01-31] MEDS: VITAMIN B COMP W-C 1 TAB TABLET PO SCH (08:40)
[2022-01-31] MEDS: MULTIVIT W/MINERALS 1 TAB TABLET PO SCH (08:40)
[2022-01-31] MEDS: PROPRANOLOL HCL 10 MG TABLET PO SCH ×2 (08:41→17:16)
[2022-01-31 08:44] LABS: CREATININE 0.4 mg/dL (0.6-1.3); MAGNESIUM 2.1 mg/dL (1.8-2.4); PHOSPHORUS 3.8 mg/dL (2.5-4.9); POTASSIUM 4.3 mmol/L (3.5-5.1)
[2022-01-31] MEDS: LEVETIRACETAM (250 MG) 250 MG TABLET PO SCH ×2 (09:32→20:23)
[2022-01-31] MEDS: UREA 15 GM PO SCH (09:32)
[2022-01-31] MEDS: CALCIUM POLYCARBOPHIL 625 MG TABLET PO SCH ×2 (09:32→17:20)
[2022-01-31] MEDS: NEOMY SULF/BACITRAC ZN/POLY 15 GM TUBE TP SCH ×2 (10:38→17:39)
[2022-01-31] MEDS: CLOTRIMAZOLE 1% OT SCH ×2 (10:38→17:39)
--- NOTE | 2022-01-31 11:00 | NUR ---
SOLE BLACKER NOTE SEEN BY DR. CH WITH SISTER AT BEDSIDE. NO EPISODE OF SEIZURE. WILL CONTINUE TO MONITOR PATIENT.
[2022-01-31 12:21] LABS: CREATININE 0.5 mg/dL (0.6-1.3); POTASSIUM 3.7 mmol/L (3.5-5.1)
[2022-01-31 14:02] LABS: CALCIUM, SERUM 8.7 mg/dL (8.5-10.1)
--- NOTE | 2022-01-31 18:43 | NUR ---
BOW MACHINE OPERATOR CLOSING NOTE RECEIVED PATIENT IN BED, ASLEEP NON VERBAL, RESPONSIVE TO RESPOND PHYSICAL STIMULUS. WITH T-PIECE ON 8LPM WITH EQUAL AND UNLABORED BREATHING. WITH TOBI MIDLINE ON SALINE LOCK, PATENT AND INTACT. PATIENT ON 1 LITER FLUID RESTRICTION. COMFORT MEASURES PROVIDED. NO APPARENT SEIZURE NOTED. ON STRICT ASPIRATION PRECAUTION. SAFETY MEASURES ENSURED WITH BED ON LOW, LOCKED POSITION, SIDERAILS RAISED AND PADDED. CALL LIGHT WITHIN REACH. WILL ENDORSE PATIENT FOR CONTINUITY OF CARE.
--- NOTE | 2022-01-31 19:19 | NUR ---
RN OPENING NOTES RECEIVED PT IN BED, ASLEEP, OPENS EYES TO VERBAL STIMULI. ON 8LPM VIA T-PIECE AND TOLERATING WELL. NO SOB NOTED. NO S/SX OF RESPIRATORY DISTRESS NOTED. TELE MONITOR DETECTS SR WITH RATE OF 80s. IV ACCESS IN TOBI MIDLINE #18G. IV IS INTACT, PATENT, AND FLUSHING WELL. G-TUBE IN PLACE. SAFETY PRECAUTIONS IN PLACE: BED IN LOWEST, LOCKED POSITION, SIDERAILS UP AND PADDED, AND BRAKES ON. TABLE AND CALL LIGHT WITHIN REACH. WILL CONTINUE TO MONITOR.
[2022-02-01] VITALS (7 sets, daily range): BP systolic 90–160; BP diastolic 55–86
--- NOTE | 2022-02-01 04:28 | NUR ---
RT fio2 increased due to desaturation. spo2 found at 88%. new spo2 95%
[2022-02-01 06:09] LABS: BASOPHILS % (AUTO) 0.1 % (0.0-2.0); EOSINOPHILS % (AUTO) 0.2 % (0.0-6.0); HEMATOCRIT 32 % (33-45); HEMOGLOBIN 10.4 g/dL (11.5-14.8); LYMPHOCYTES # (AUTO) 0.9 K/uL (0.8-4.8); LYMPHOCYTES % (AUTO) 7.4 % (20.0-44.0); MEAN CORPUSCULAR HGB CONC 33 g/dl (31.0-36.0); MEAN CORPUSCULAR VOLUME 92 fL (82-100); MONOCYTES # (AUTO) 0.7 K/uL (0.1-1.30); MONOCYTES % (AUTO) 5.6 % (2.0-12.0); NEUTROPHILS % (AUTO) 86.7 % (43.0-81.0); PLATELET COUNT (AUTO) 242 K/uL (150-450); RED BLOOD CELL COUNT(AUTO) 3.42 MIL/uL (4.0-5.2); WHITE BLOOD COUNT (AUTO) 12.7 K/uL (4.3-11.0)
[2022-02-01] MEDS: [UNRECOGNIZED DRUG - MIXTURE] GT SCH ×5 (06:27→20:52)
[2022-02-01] MEDS: PANTOPRAZOLE 40 MG TABLET.DR PO SCH (06:30)
--- NOTE | 2022-02-01 06:42 | NUR ---
RN CLOSING NOTES PT IN BED, ASLEEP, OPENS EYES TO RANDOM STIMULI. ON 8LPM VIA T-PIECE AND TOLERATING WELL. NO SOB NOTED. NO S/SX OF RESPIRATORY DISTRESS NOTED. TELE MONITOR DETECTS SR WITH RATE OF 70s-80s. IV ACCESS IN TOBI MIDLINE #18G. IV IS INTACT, PATENT, AND FLUSHING WELL. G-TUBE IN PLACE. ALL NEEDS MET. PT KEPT CLEAN AND DRY. SEIZURE PRECAUTIONS MAINTAINED. SAFETY PRECAUTIONS IN PLACE: BED IN LOWEST, LOCKED POSITION, SIDERAILS UP AND PADDED, AND BRAKES ON. TABLE AND CALL LIGHT WITHIN REACH. WILL ENDORSE TO ONCOMING SHIFT FOR TO.
--- NOTE | 2022-02-01 07:25 | NUR ---
FOOD WRITER OPENING NOTES RECEIVED PATIENT IN BED IN NO ACUTE SIGNS OF DISTRESS. HOB ELEVATED. NON VERBAL, RESPONSIVE TO TACTILE/PAIN STIMULI. PT ON COOL AEROSOL T-PIECE @ 10LPM, TOLERATING WELL WITH UNLABORED BREATHING. TOBI MIDLINE G#18 ON SALINE LOCK, PATENT AND INTACT. ON TELE-MONITOR WITH CURRENT READING OF SINUS TACH, HR 101. G-TUBE IN PLACE, PATENT AND CLAMPED AT THIS TIME. ASPIRATION PRECAUTION MAINTAINED. SAFETY, FALL AND SEIZURES MEASURES MAINTAINED: BED IN LOWEST LOCKED POSITION, SIDE-RAILS UP X3 AND PADDED. CALL LIGHT WITHIN REACH. WILL CONTINUE TO MONITOR PATIENT.
--- NOTE | 2022-02-01 07:52 | NUR ---
RT PT RECVD ON 40% FIO2, 10 LPM COOL AEROSOL. PT SUCTIONED PRN. MODERATE, THICK YELLOW SECRETIONS. TRACH IS PATENT AND SECURED. SPARE TRACH AND AMBU BAG AT BEDSIDE. NO SOB OR RESPIRATORY DISTRESS NOTED AT THIS TIME.
[2022-02-01] MEDS: FUROSEMIDE 20 MG/2 ML VIAL IV SCH (09:00)
[2022-02-01] MEDS: PROPRANOLOL HCL 10 MG TABLET PO SCH ×2 (09:00→16:32)
[2022-02-01] MEDS: CALCIUM POLYCARBOPHIL 625 MG TABLET PO SCH ×2 (09:21→16:32)
[2022-02-01] MEDS: ASPIRIN EC 81 MG TABLET.DR PO SCH (09:22)
[2022-02-01] MEDS: LEVETIRACETAM (250 MG) 250 MG TABLET PO SCH ×2 (09:22→20:54)
[2022-02-01] MEDS: VITAMIN B COMP W-C 1 TAB TABLET PO SCH (09:22)
[2022-02-01] MEDS: ACIDOPHILUS/BULGARICUS 1 EACH TAB.CHEW PO SCH ×2 (09:22→16:32)
[2022-02-01] MEDS: FAMOTIDINE (20 MG) 20 MG TABLET PO SCH ×2 (09:23→20:54)
[2022-02-01] MEDS: SODIUM CHLORIDE 1000 MG TABLET GT SCH ×2 (09:23→16:32)
[2022-02-01] MEDS: MULTIVIT W/MINERALS 1 TAB TABLET PO SCH (09:23)
[2022-02-01] MEDS: FLUCONAZOLE (100 MG) 100 MG TABLET PO SCH ×2 (09:23→16:32)
[2022-02-01] MEDS: CLOTRIMAZOLE 1% OT SCH ×2 (09:29→16:34)
[2022-02-01] MEDS: NEOMY SULF/BACITRAC ZN/POLY 15 GM TUBE TP SCH ×2 (09:30→16:33)
[2022-02-01] MEDS: UREA 15 GM PO SCH (11:45)
[2022-02-01 11:54] LABS: CALCIUM, SERUM 9.6 mg/dL (8.5-10.1); CREATININE 0.5 mg/dL (0.6-1.3); MAGNESIUM 1.9 mg/dL (1.8-2.4); PHOSPHORUS 4.2 mg/dL (2.5-4.9); POTASSIUM 4.4 mmol/L (3.5-5.1)
--- NOTE | 2022-02-01 18:50 | NUR ---
FLARER CLOSING NOTES PATIENT ASLEEP IN BED WITH NO ACUTE SIGNS OF DISTRESS. NON VERBAL, RESPONSIVE TO TACTILE/PAIN STIMULI. PT ON COOL AEROSOL T-PIECE @ 10LPM, TOLERATING WELL WITH UNLABORED BREATHING. TOBI MIDLINE G#18 ON SALINE LOCK, PATENT AND INTACT. ON TELE-MONITOR WITH NORMAL SINUS RHYTHM, HR 99. G-TUBE IN PLACE, PATENT AND CLAMPED AT THIS TIME. ASPIRATION PRECAUTION MAINTAINED. SAFETY, FALL AND SEIZURES MEASURES MAINTAINED: KEPT HOB ELEVATED. BED IN LOWEST LOCKED POSITION, SIDE-RAILS UP X3 AND PADDED. CALL LIGHT WITHIN REACH. PATIENT IS TURNED AND REPOSITIONED Q2HRS AND NEEDED. WILL ENDORSED TO RIGHT OF WAY CUTTER NURSE.
--- NOTE | 2022-02-01 20:00 | NUR ---
RN NOTES RECEIVED PATIENT IN BED, OBTUNDED, NO APPARENT DISTRESS, T-PIECE, COOL AEROSOL AT 10 LPM, SPO2 96%, TONGUE DEPRESSOR WRAPPED IN KERLIX IN BETWEEN TEETH AND TONGUE PER FAMILY'S REQUEST, PEG TUBE FLUSHING GOOD, NO RESIDUAL, KEPT HOB ELEVATED, SEIZURE PRECAUTION MAINTAINED.
[2022-02-02 00:11] VITALS: BP 104/58
[2022-02-02 04:00] VITALS: BP 98/60
[2022-02-02] MEDS: [UNRECOGNIZED DRUG - MIXTURE] GT SCH ×3 (06:19→14:22)
[2022-02-02 06:35] LABS: BASOPHILS % (AUTO) 0.1 % (0.0-2.0); EOSINOPHILS % (AUTO) 0.4 % (0.0-6.0); HEMATOCRIT 29 % (33-45); HEMOGLOBIN 9.7 g/dL (11.5-14.8); LYMPHOCYTES # (AUTO) 1.3 K/uL (0.8-4.8); LYMPHOCYTES % (AUTO) 9.6 % (20.0-44.0); MEAN CORPUSCULAR HGB CONC 33 g/dl (31.0-36.0); MEAN CORPUSCULAR VOLUME 92 fL (82-100); MONOCYTES # (AUTO) 1.1 K/uL (0.1-1.30); NEUTROPHILS # (AUTO) 10.7 K/uL (1.8-8.9); NEUTROPHILS % (AUTO) 81.9 % (43.0-81.0); PLATELET COUNT (AUTO) 240 K/uL (150-450); RED BLOOD CELL COUNT(AUTO) 3.17 MIL/uL (4.0-5.2); WHITE BLOOD COUNT (AUTO) 13.1 K/uL (4.3-11.0)
--- NOTE | 2022-02-02 06:38 | NUR ---
RN NOTES OBTUNDED, STABLE ON O2 AT 10LPM VIA T-PIECE, NO RESPIRATORY DISTRESS, NOT IN APPARENT PAIN, BOLUS FEEDING GIVEN X2, TOLERATED WELL, NO VOMITING, NO ABDOMINAL DISTENTION, NO RESIDUAL, BUTTOCKS REMAINED INTACT, HEELS OFFLOADED, NO SEIZURE NOTED THIS SHIFT, CONTINUE KEPPRA, LIMIT SEDATING MEDICATIONS AND POSSIBLE REPEAT CT HEAD.
[2022-02-02 07:18] LABS: CALCIUM, SERUM 9.4 mg/dL (8.5-10.1); CREATININE 0.6 mg/dL (0.6-1.3); MAGNESIUM 2.1 mg/dL (1.8-2.4); PHOSPHORUS 4.2 mg/dL (2.5-4.9); POTASSIUM 4.4 mmol/L (3.5-5.1)
[2022-02-02] MEDS: PANTOPRAZOLE 40 MG TABLET.DR PO SCH (07:40)
--- NOTE | 2022-02-02 08:11 | NUR ---
RN NOTES PATIENT CURRENTLY W/ PADDED TONGUE DEPRESSOR ON MOUTH TO AVOID BITING TONGUE. PATIENT NOTED W/ OCCASIONAL TEETH-CLENCHING, AT RISK FOR TONGUE TO BE BITTEN. TONGUE DEPRESSOR IN PLACE AND CHECKED ORAL MUCOSA. WILL CONTINUE TO MONITOR.
[2022-02-02] MEDS: MULTIVIT W/MINERALS 1 TAB TABLET PO SCH (08:25)
[2022-02-02] MEDS: CALCIUM POLYCARBOPHIL 625 MG TABLET PO SCH ×2 (08:25→17:12)
[2022-02-02] MEDS: SODIUM CHLORIDE 1000 MG TABLET GT SCH ×2 (08:25→17:10)
[2022-02-02] MEDS: FUROSEMIDE 20 MG/2 ML VIAL IV SCH (08:25)
[2022-02-02] MEDS: VITAMIN B COMP W-C 1 TAB TABLET PO SCH (08:25)
[2022-02-02] MEDS: ACIDOPHILUS/BULGARICUS 1 EACH TAB.CHEW PO SCH ×2 (08:26→17:11)
[2022-02-02] MEDS: LEVETIRACETAM (250 MG) 250 MG TABLET PO SCH (08:26)
[2022-02-02] MEDS: CLOTRIMAZOLE 1% OT SCH ×2 (08:26→17:09)
[2022-02-02] MEDS: NEOMY SULF/BACITRAC ZN/POLY 15 GM TUBE TP SCH ×2 (08:26→17:09)
[2022-02-02] MEDS: ASPIRIN EC 81 MG TABLET.DR PO SCH (08:26)
[2022-02-02] MEDS: FAMOTIDINE (20 MG) 20 MG TABLET PO SCH (08:26)
[2022-02-02] MEDS: FLUCONAZOLE (100 MG) 100 MG TABLET PO SCH ×2 (08:26→17:10)
[2022-02-02] MEDS: PROPRANOLOL HCL 10 MG TABLET PO SCH ×2 (08:27→17:12)
[2022-02-02] MEDS: UREA 15 GM PO SCH ×2 (09:00→11:20)
--- NOTE | 2022-02-02 09:18 | NUR ---
RN NOTES FOLLOWED UP UREA POWDER MEDICATION FROM PHARMACY; WILL SEND UP PER PHARMACY.
--- NOTE | 2022-02-02 10:55 | NUR ---
RN NOTES RECEIVED CALL FROM FRACISCO, PATIENT'S BROTHER, MADE AWARE OF PATIENT'S CONDITION/PROGRESS.
--- NOTE | 2022-02-02 11:18 | NUR ---
RN NOTES RECEIVED UREA POWDER FROM PHARMACY.
--- NOTE | 2022-02-02 13:01 | NUR ---
RN NOTES DR. CH IN THE UNIT TO SEE THE PATIENT. PATIENT'S SISTER, REYNOLD, AT BEDSIDE AND SPOKE W/ DR. CH, MADE AWARE OF PLAN OF CARE.
[2022-02-02] MEDS ORDERED: urea GT (13:28)
[2022-02-02] MEDS ORDERED: SODI100037 GT (13:28)
[2022-02-02] MEDS ORDERED: FURO-145 GT (13:29)
[2022-02-02] MEDS ORDERED: POTA8TAB3 GT (13:29)
--- NOTE | 2022-02-02 14:55 | NUR ---
RN NOTES JAMEY RT, AT BEDSIDE AND EXPLAINED TO PT'S SISTER, REYNOLD, THAT TRACH CANNOT BE CHANGED FROM CUFFLESS TO CUFFED. CHARGE NURSE MADE AWARE, TO CONTACT MD DISPENSING LEAD.
--- NOTE | 2022-02-02 15:30 | NUR ---
RN NOTES TRACH CHANGED BY RT AT BEDSIDE. DR. JING MORRIS.
--- NOTE | 2022-02-02 15:36 | NUR ---
tracheostomy tube changed done as order from shiley 4 cuffless to shiley 4 cuffed. trach cuffed fully deflated. breath sounds coarse rhonchi bilateral post trach changed. no increase work of breathing post trach changed. Addendum: 02/02/22 at 1541 by JAMEY STONE RT Amended: Links added.
[2022-02-02 16:00] VITALS: BP 104/61
--- NOTE | 2022-02-02 17:03 | NUR ---
RN NOTES PATIENT SEEN BY DR. CH TODAY W/ ORDER FOR DISCHARGE TO HOME W/ HOME HEALTH FOLLOW-UP. DISCHARGE INSTRUCTION AND EDUCATION PROVIDED TO REYNOLD, SISTER, AT BEDSIDE; PRESCRIPTION MEDICATION GIVEN. PT UNABLE TO SIGN; FORM SIGNED BY ME AND ANOTHER RN DUNIA. ALL BELONGINGS ACCOUNTED FOR. MIDLINE REMOVED, NO BLEEDING NOTED. UNABLE TO TAKE PHOTO OF SKIN ISSUES FAMILY IS MORE CONCERNED ABOUT GETTING PATIENT'S TRACH CHANGED TO THE ONE BROUGHT FROM HOME. NO ADVERSE CHANGE NOTED ON SKIN ISSUES; SKIN INTACT. T-PIECE IN PLACE AND ATTACHED TO PORTABLE OXYGEN TANK PROVIDED BY EMT. BEDSIDE ENDORSEMENT DONE. PICKED UP BY AMBULANCE VIA GURNEY ACCOMPANIED BY 3 DESIGN TEACHER. CHARGE NURSE AND MD AWARE OF DISCHARGE.
[2022-02-02 17:12] VITALS: BP 104/61
== END 2022-02-02 17:35 | disposition home health service (06) | DRG 101 ==
LOC: ER 14:56 → TELE 20:35
PROVIDERS: ADMIT Student in an Organized Health Care Education/Training Program; ATTEND Nurse Practitioner Acute Care
PROC: 05H533Z Insertion of Infusion Device into Right Subclavian Vein, Percutaneous Approach (ICD-10-PCS; principal; 2022-01-30)
PROC: B546ZZA Ultrasonography of Right Subclavian Vein, Guidance (ICD-10-PCS; 2022-01-30)
PROC: 0W9B3ZZ Drainage of Left Pleural Cavity, Percutaneous Approach (ICD-10-PCS; 2022-01-30)
DX: G40.909 Epilepsy, unspecified, not intractable, without status epilepticus (principal); E22.2 Syndrome of inappropriate secretion of antidiuretic hormone; J90 Pleural effusion, not elsewhere classified; J96.10 Chronic respiratory failure, unspecified whether with hypoxia or hypercapnia; B48.8 Other specified mycoses; G93.49 Other encephalopathy; Z93.1 Gastrostomy status; Z86.73 Personal history of transient ischemic attack (TIA), and cerebral infarction without residual deficits; Z98.2 Presence of cerebrospinal fluid drainage device; Z74.01 Bed confinement status; I10 Essential (primary) hypertension; R13.10 Dysphagia, unspecified; D64.9 Anemia, unspecified; Z79.82 Long term (current) use of aspirin; Z93.0 Tracheostomy status; Z98.890 Other specified postprocedural states; Z87.820 Personal history of traumatic brain injury; G93.89 Other specified disorders of brain
CPT/HCPCS: 31720; 36410; 36415; 70450-TC; 71045-TC; 80048-TC; 82310-TC; 82436-TC; 83735-TC; 84100-TC; 84133-TC; 84155-TC; 84295-TC; 84300-TC; 84439-TC; 84443-TC; 84481; 84550-TC; 84703-TC; 85025-TC; 85610-TC; 87070-TC; 87075-TC; 87081-TC; 87086-TC; 87102-TC; 87116; 87206; 89051-TC; 92611-TC; 94640-TC; 94760-TC; 94799-TC; 95819-TC; A4623; A6403; A7526; C9803; G0378; J1650; J1940; J1953; J2060; J2405; J3475; J3490; J7030; Q0177